=== PATIENT | male | born 1940 | race Caucasian/White ===

== ENCOUNTER 2018-06-09 12:27 | Inpatient (IN) | payer OTHER ==
[2018-06-09] MEDS ORDERED: SODIUM CHLORIDE 1,000 ML IV SCH ×3 (12:30→20:15)
[2018-06-09] MEDS ORDERED: VANCOMYCIN 1 GM PREMIX - 1 GM/200 ML BAG IVPB ONE (12:59)
[2018-06-09] MEDS ORDERED: PIPERACILLIN/TAZOB 4.5 GM 4.5 GM in DEXTROSE 5%-WATER 100 ML IVPB ONE ×2 (12:59→19:00)
[2018-06-09] MEDS ORDERED: PIPERACILLIN/TAZOB 4.5 GM 4.5 GM/100 ML BAG IVPB ONE ×2 (13:02→19:02)
[2018-06-09] MEDS ORDERED: ACETAMINOPHEN 1000 MG/100 ML VIAL (NON FORMULARY) IVPB ONE (13:02)
--- NOTE | 2018-06-09 13:57 | PDOC ---
History of Present Illness - General Chief Complaint: CVA/TIA Stated Complaint: STROKE Time Seen by Provider: 06/09/18 12:27 - History of Present Illness Initial Comments: 06/09/18 13:55 77m with pmh of back pain found on the floor by son after having spent weekend estrellita in is house. Patient is awake but doesn't seem alert, unable to talk or respond to command. PAtient was last talked to by son on Saturday where he was saying he wasn't feeling well and was feeling a cold coming. Past History - Past Medical History Allergies/Adverse Reactions: Allergies Allergy/AdvReac Type Severity Reaction Status Date / Time No Known Allergies Allergy Verified 06/09/18 13:23 Home Medications: Ambulatory Orders NK [No Known Home Medication] 06/09/18 COPD: No DVT: No Other medical history: Seasonal Allergies & chronic back pain - Immunization History Immunization Up to Date: Yes - Suicide/Smoking/Psychosocial Hx Smoking History: Unknown if ever smoked Have you smoked in the past 12 months: No Information on smoking cessation initiated: No Hx Alcohol Use: No Drug/Substance Use Hx: No Substance Use Type: None *Physical Exam - Vital Signs Last Vital Signs Temp Pulse Resp BP Pulse Ox 101.2 F H 121 H 18 166/15 94 L 06/09/18 13:23 06/09/18 13:23 06/09/18 13:23 06/09/18 13:23 06/09/18 13:23 Critical Care Time/MDM Note - Medical Decision Making Note: 06/09/18 17:00 Stroke and/or infection. Will draw CVA workup and septic workup. 06/09/18 17:[address] Oconnor with Neurology who will see the patient. Possible opacity of the left lower lung lobe may be source of white count and fever. 06/09/18 17:47 Bedside ultrasound Fast negative, no sign of tamponade either. 06/09/18 18:24 Patient admitted to ICU Discharge Disposition - Diagnosis Altered mental state, Fever - Discharge Dispostion Decision to Admit order: Yes - Referrals - Patient Instructions - Post Discharge Activity
[2018-06-09 13:59] LABS: BASO % 0.4 % (0-2.0); HEMATOCRIT 48.6 % (35.4-49); HEMOGLOBIN 16.3 GM/dL (11.7-16.9); LYMPH % 8.9 % (8-40); MCHC 33.6 g/dl (32.0-35.9); MEAN CELL VOLUME 95.2 fl (80-96); MEAN PLT VOLUME 8.8 fl (7.5-11.1); MONO % 10.9 % (3.8-10.2); NEUT % 79.8 % (42.8-82.8); PLATELET COUNT 240 K/MM3 (134-434); RBC 5.11 M/mm3 (4.00-5.60); RDW 13.4 % (11.9-15.9); WHITE BLOOD COUNT 18.9 K/mm3 (4.0-10.0)
[2018-06-09 14:13] LABS: INR 1.05 (0.82-1.09); PROTHROMBIN TIME (PATIENT) 11.9 SEC (9.7-13.0)
[2018-06-09] MEDS ORDERED: VANCOMYCIN 1 GRAM (PRE-DOCKED) 1,000 MG/250 ML BAG IVPB ONE (14:18)
[2018-06-09 14:29] LABS: URINE APPEARANCE CLEAR; URINE BILIRUBIN NEGATIVE (<2.0 mg/dL); URINE COLOR YELLOW; URINE GLUCOSE (UA) NEGATIVE (NEGATIVE); URINE KETONE NEGATIVE (NEGATIVE); URINE LEUK ESTERASE NEGATIVE (NEGATIVE); URINE NITRITE NEGATIVE (NEGATIVE)
[2018-06-09 14:33] LABS: URINE PROTEIN 3+ (NEGATIVE)
[2018-06-09 14:42] LABS: EPI CELLS RARE /HPF (FEW); URINE HYALINE CAST 1 /lpf; URINE MUCUS FEW
[2018-06-09 14:55] LABS: ALBUMIN 4.3 g/dl (3.4-5.0); ANION GAP 11 (8-16); BLOOD UREA NITROGEN 27 mg/dL (7-18); CALCIUM 9.5 mg/dL (8.5-10.1); CHLORIDE 103 mmol/L (98-107); CO2 24 mmol/L (21-32); GLUCOSE,RANDOM 114 mg/dL (74-106); SODIUM 138 mmol/L (136-145)
[2018-06-09 15:09] LABS: ALK PHOS 51 U/L (45-117); BILIRUBIN,TOTAL 0.9 mg/dL (0.2-1.0); CREATININE 1.1 mg/dL (0.7-1.3); SGPT/ALT 46 U/L (12-78); TOT PROT 8.3 g/dl (6.4-8.2)
[2018-06-09 15:33] LABS: POTASSIUM 4.9 mmol/L (3.5-5.1); SGOT/AST 68 U/L (15-37)
[2018-06-09] MEDS ORDERED: morphine CARPU-JECT 4 MG/1 ML DISP.SYRIN IVPUSH ONE (16:11)
--- NOTE | 2018-06-09 16:40 | PDOC ---
Attending Attestation - Resident Resident Name: Nathan Lyon - ED Attending Attestation I have performed the following: I have examined & evaluated the patient, The case was reviewed & discussed with the resident, I agree w/resident's findings & plan, Exceptions are as noted - HPI HPI: 06/09/18 16:35 77-year-old male with history of hypertension and chronic back pain presents with altered mental status. The patient lives with his son. The son had one on vacation for the weekend. Last saw him approximately 3 days ago. The patient at that time had a small cough but no other symptoms and was alert aware oriented and conversant. Today, the patient's son went to check on the patient upon returning home. Noted that the patient was confused, naked and found down on the ground. Patient is altered and appears to be moving all extremities spontaneously. She was noted have a fever here in the ER. Patient seen immediately by us and sent to the CAT scanner to evaluate for intracranial pathology. - Physicial Exam PE: 06/09/18 16:35 GENERAL: ill-appearing, responsive to painful stimuli, protecting airway. HEAD: No signs of trauma EYES: pinpoint pupils, sclera anicteric, conjunctiva clear ENT: Auricles normal inspection, hearing grossly normal, nares patent NECK: Normal ROM, supple LUNGS: Breath sounds equal, clear to auscultation bilaterally. HEART: Regular rate and rhythm, normal S1 and S2, no murmurs, rubs or gallops ABDOMEN: Soft,. No guarding, no rebound. No masses EXTREMITIES: Normal range of motion, no edema. No clubbing or cyanosis. No cords, erythema, or tenderness NEUROLOGICAL: Cranial nerves II through XII grossly intact. - Critical Care Time Total Critical Care Time: 30 Critical Care Statement: The care of this patient involved high complexity decision making to prevent further life threatening deterioration of the patient 's condition and/or to evaluate & treat vital organ system(s) failure or risk of failure. - Medical Decision Making 06/09/18 16:38 Vital Signs Temp Pulse Resp BP Pulse Ox 101.2 F H 126 H 18 203/113 97 06/09/18 13:23 06/09/18 15:55 06/09/18 15:55 06/09/18 15:55 06/09/18 15:55 Patient is quite altered and with a fever here. The AMS is likely secondary to infectious. Pt has been coughing prior. Chest xray reviewed, pending official read. Sepsis protocol initiated and pt treated with empiric IV antibiotics. Head CT reviewed with no acute findings. Given the ill-appearance, the patient would benefit from an ICU admission. Will admit the patient to the hospital for further management. <Shahbaz Matthew - Last Filed: 06/09/18 16:34> - Medical Decision Making 06/09/18 22:52 Dwight Cole (Son) <Chelsy Raza - Last Filed: 06/09/18 22:53>
[2018-06-09] MEDS ORDERED: MORPHINE SULFATE 10 MG/1 ML *VIAL ONE (17:05)
[2018-06-09] MEDS ORDERED: LABETALOL HCL 5 MG/1 ML (100MG/20 ML VIAL) IVPUSH PRN (17:47)
[2018-06-09] MEDS ORDERED: ACETAMINOPHEN 1000 MG/100 ML VIAL (NON FORMULARY) IVPB PRN (17:50)
--- NOTE | 2018-06-09 18:22 | CONSULT ---
Consultation: REQUESTING PROVIDER: CONSULT REQUEST: We have been asked to medically evaluate this patient for (ICU admission for CVA and Rhabdomyolysis). HISTORY OF PRESENT ILLNESS: 77 year old male who lives at home with his son is being admitted to the ICU for Probable CVA and Rhabdomyolysis. Pt history is limited due to the pt clinical status and taken fully from chart review and conversation with two sons. The son was away on vacation and last saw the pt well on Saturday; last spoke to the patient well on saturday. Son states he found his father on the floor this morning altered and unable to speak or move the right side of his body. REVIEW OF SYSTEMS: CONSTITUTIONAL: fever, generalized weakness Absent: , chills, diaphoresis, malaise, loss of appetite, weight change HEENT: Absent: rhinorrhea, nasal congestion, throat pain, throat swelling, difficulty swallowing, mouth swelling, ear pain, eye pain, visual changes CARDIOVASCULAR: Absent: chest pain, syncope, palpitations, irregular heart rate, lightheadedness , peripheral edema RESPIRATORY: Absent: cough, shortness of breath, dyspnea with exertion, orthopnea, wheezing, stridor, hemoptysis GASTROINTESTINAL: Absent: abdominal pain, abdominal distension, nausea, vomiting, diarrhea, constipation, melena, hematochezia GENITOURINARY: Absent: dysuria, frequency, urgency, hesitancy, hematuria, flank pain, genital pain MUSCULOSKELETAL: Absent: myalgia, arthralgia, joint swelling, back pain, neck pain SKIN: Absent: rash, itching, pallor HEMATOLOGIC/IMMUNOLOGIC: Absent: easy bleeding, easy bruising, lymphadenopathy, frequent infections ENDOCRINE: Absent: unexplained weight gain, unexplained weight loss, heat intolerance, cold intolerance NEUROLOGIC: focal weakness, mental status changes Absent: headache, or paresthesias, dizziness, unsteady gait, seizure, bladder or bowel incontinence PSYCHIATRIC: Absent: anxiety, depression, suicidal or homicidal ideation, hallucinations. PHYSICAL EXAMINATION Vital Signs - 24 hr 06/09/18 06/09/18 06/09/18 12:35 13:23 14:22 Temperature 101.2 F H Pulse Rate 115 H 121 H Pulse Rate [ 120 H Left] Respiratory 18 22 Rate Blood Pressure 166/15 Blood Pressure 247/118 [Arm] O2 Sat by Pulse 98 94 L 98 Oximetry (%) 06/09/18 15:55 Temperature Pulse Rate Pulse Rate [ 126 H Left] Respiratory 18 Rate Blood Pressure Blood Pressure 203/113 [Arm] O2 Sat by Pulse 97 Oximetry (%) GENERAL: Awake, alert, in no acute distress. HEAD: Normal with no signs of trauma. EYES: Pt unable to perform EOM testing. Right sided lid lag, injected conjunctiva, tearing. Pupils equal, round and reactive to light, sclera anicteric EARS, NOSE, THROAT: Ears normal, nares patent, oropharynx clear without exudates. Moist mucous membranes. NECK: decreased range of motion, supple without lymphadenopathy, JVD, or masses. LUNGS: Breath sounds equal, clear to auscultation bilaterally. No wheezes, and no crackles. No accessory muscle use. HEART: Tachycardic, regular rythm, normal S1 and S2 without murmur, rub or gallop. ABDOMEN: Soft, nontender, not distended, normoactive bowel sounds, no guarding, no rebound, no masses. No hepatomegaly or splenomegaly. MUSCULOSKELETAL: Unable to determine ROM on right due to weakness. No bony deformities or tenderness. No CVA tenderness. UPPER EXTREMITIES: 2+ pulses, warm, well-perfused. No cyanosis. No clubbing. Cap refill <2 seconds. No peripheral edema. LOWER EXTREMITIES: 2+ pulses, warm, well-perfused. No calf tenderness. No peripheral edema. NEUROLOGICAL: Pt unable to perform CN exam, unable to speak or follow commands. 0/5 weakness of complete RLE and RUE PSYCHIATRIC: Good eye contact. SKIN: Warm, dry, normal turgor, no rashes or lesions noted. Laboratory Results - last 24 hr 06/09/18 06/09/18 06/09/18 12:29 13:35 13:38 WBC RBC Hgb Hct MCV MCH MCHC RDW Plt Count MPV Absolute Neuts (auto) Neutrophils % Lymphocytes % Monocytes % Eosinophils % Basophils % Nucleated RBC % PT with INR INR Sodium Potassium Chloride Carbon Dioxide Anion Gap BUN Creatinine Creat Clearance w eGFR Random Glucose Lactic Acid 2.4 H* Calcium Total Bilirubin AST ALT Alkaline Phosphatase Creatine Kinase Troponin I Total Protein Albumin Total LDL Cholesterol Urine Color Yellow Urine Appearance Clear Urine pH 5.0 Ur Specific [place] 1.024 Urine Protein 3+ H Urine Glucose (UA) Negative Urine Ketones Negative Urine Blood 3+ H Urine Nitrite Negative Urine Bilirubin Negative Urine Urobilinogen 2.0 Ur Leukocyte Esterase Negative Urine WBC (Auto) 7 Urine RBC (Auto) 10 Ur Epithelial Cells Rare Hyaline Casts 1 Urine Mucus Few Blood Type Cancelled Antibody Screen Cancelled 06/09/18 06/09/18 06/09/18 13:40 13:40 13:40 WBC 18.9 H RBC 5.11 Hgb 16.3 Hct 48.6 MCV 95.2 MCH 32.0 MCHC 33.6 RDW 13.4 Plt Count 240 MPV 8.8 Absolute Neuts (auto) 15.1 Neutrophils % 79.8 Lymphocytes % 8.9 Monocytes % 10.9 H Eosinophils % 0.0 Basophils % 0.4 Nucleated RBC % 0 PT with INR 11.90 INR 1.05 Sodium 138 Potassium 4.9 Chloride 103 Carbon Dioxide 24 Anion Gap 11 BUN 27 H Creatinine 1.1 Creat Clearance w eGFR > 60 Random Glucose 114 H Lactic Acid Calcium 9.5 Total Bilirubin 0.9 AST 68 H ALT 46 Alkaline Phosphatase 51 Creatine Kinase 1288 H Troponin I 0.03 Total Protein 8.3 H Albumin 4.3 Total LDL Cholesterol 196 H Urine Color Urine Appearance Urine pH Ur Specific [place] Urine Protein Urine Glucose (UA) Urine Ketones Urine Blood Urine Nitrite Urine Bilirubin Urine Urobilinogen Ur Leukocyte Esterase Urine WBC (Auto) Urine RBC (Auto) Ur Epithelial Cells Hyaline Casts Urine Mucus Blood Type Antibody Screen Active Medications Generic Name Dose Route Start Last Admin Trade Name Jenaroq PRN Reason Stop Dose Admin Acetaminophen 1,000 mg 06/09/18 17:50 Ofirmev Injection - IVPB Q4H PRN FEVER Aspirin 300 mg 06/09/18 17:45 Asa - RC DAILY FLIP Piperacillin Sod/Tazobactam 100 mls @ 200 mls/hr 06/09/18 19:00 Sod 4.5 gm/ Dextrose IVPB 06/09/18 19:29 ONCE ONE Protocol Vancomycin HCl 1,000 mg/ 250 mls @ 166.667 mls/hr 06/10/18 13:00 Dextrose IVPB 06/10/18 14:29 ONCE ONE Protocol Sodium Chloride 1,000 mls @ 100 mls/hr 06/09/18 18:00 Normal Saline - IV ASDIR FLIP Insulin Aspart 1 vial 06/09/18 22:00 Novolog Vial Sliding Scale - SQ ACHS FLIP Protocol Labetalol HCl 10 mg 06/09/18 17:47 Normodyne Injection - IVPUSH Q4H PRN HYPERTENSION ASSESSMENT/PLAN: Neuro -Neurology consult appreciated -Acute vs. Subacute CVA 300mg ASA rectally Permissive HTN as per below, awaiting neurology recommendation Negative CT noted, MRI w/o contrast ordered Cardio -HTN with systolic >200 and CVA -PRN labatalol 10mg IV to keep Systolic <200, cautiously lower bp as per stroke literature and Neurology recommendation Respiratory -No acute Respiratory issues -Aspiration precautions Elevate head of bed NPO until speech and swallow eval Frequent suctioning GI -No acute GI issues at this time, NPO Renal -CK of 1288, most likely due to Rhabdo after being found on the ground 3+ blood in urine with only 10 RBCs Fluid resuscitation with NS @100 cc/hr Will follow BMP Endocrine -No known history of DM, however BGM monitoring Q4 and insulin SS ordered to keep glucose with a goal of 160-180 ID -ID consult appreciated Received vanco 1000mg and Zosyn 4.5 gm in ED, will redose vanco and zosyn for now Fever most likely not infectious in nature VTE Prophylaxis -SCD's b/l -Will await heparin until Neuro recommendation FEN Fluids: NS @ 100 cc/hr Electrolytes: No electrolyte abnormalities at this time. Follow BMP Nutrition: NPO until speech and swallow eval Dispo: We will continue to follow the patient. Thank you for this consultative opportunity. Problem List - Problems (1) CVA (cerebral vascular accident) Code(s): I63.9 - CEREBRAL INFARCTION, UNSPECIFIED (2) Rhabdomyolysis Code(s): M62.82 - RHABDOMYOLYSIS (3) HTN (hypertension), malignant Code(s): I10 - ESSENTIAL (PRIMARY) HYPERTENSION (4) Altered mental state Code(s): R41.82 - ALTERED MENTAL STATUS, UNSPECIFIED (5) Fever Code(s): R50.9 - FEVER, UNSPECIFIED Visit type - Emergency Visit Emergency Visit: Yes ED Registration Date: 06/09/18 Care time: The patient presented to the Emergency Department on the above date and was hospitalized for further evaluation of their emergent condition. - New Patient This patient is new to me today: Yes Date on this admission: 06/09/18 - Critical Care Critical Care patient: Yes Total Critical Care Time (in minutes): 45 Critical Care Statement: The care of this patient involved high complexity decision making to prevent further life threatening deterioration of the patient 's condition and/or to evaluate & treat vital organ system(s) failure or risk of failure.
[2018-06-09] MEDS ORDERED: ASPIRIN 300 MG SUPP.RECT RC ONE (18:29)
[2018-06-09] MEDS: ASPIRIN 300 MG SUPP.RECT RC SCH (18:40)
--- NOTE | 2018-06-09 19:57 | HP ---
Admitting History and Physical - Primary Care Physician PCP: Kristy Mcallister - Admission History of Present Illness: 77-year-old male with history of hypertension and chronic back pain presents with altered mental status. The patient lives with his son. The son had one on vacation for the weekend. Last saw him approximately 3 days ago. The patient at that time had a small cough but no other symptoms and was alert aware oriented and conversant. Today, the patient's son went to check on the patient upon returning home. Noted that the patient was confused, naked and found down on the ground. Patient is altered and appears to be moving all extremities spontaneously. She was noted have a fever here in the ER. Patient seen immediately by us and sent to the CAT scanner to evaluate for intracranial pathology. - Past Medical History Cardiovascular: Yes: HTN - Smoking History Smoking history: Unknown if ever smoked Have you smoked in the past 12 months: No - Alcohol/Substance Use Hx Alcohol Use: No Home Medications - Allergies Allergies/Adverse Reactions: Allergies Allergy/AdvReac Type Severity Reaction Status Date / Time No Known Allergies Allergy Verified 06/09/18 13:23 - Home Medications Home Medications: Ambulatory Orders NK [No Known Home Medication] 06/09/18 Physical Examination Vital Signs: Vital Signs Temperature 100.2 F H 06/09/18 18:38 Pulse Rate 125 H 06/09/18 18:26 Respiratory Rate 22 06/09/18 18:26 Blood Pressure 183/96 06/09/18 18:26 O2 Sat by Pulse Oximetry (%) 97 06/09/18 18:26 Findings/Remarks: awake but not talking Constitutional: Yes: Calm HENT: Yes: Atraumatic Neck: Yes: Supple Cardiovascular: Yes: Regular Rate and Rhythm Respiratory: Yes: CTA Bilaterally Gastrointestinal: Yes: Normal Bowel Sounds Extremities: Yes: WNL Edema: No Peripheral Pulses WNL: Yes Neurological: Yes: Other (not moving R upper and lower extremity) Labs: CBC, BMP 06/09/18 13:40 06/09/18 13:40 Problem List - Problems (1) Altered mental state Assessment/Plan: pt awake not talking mri done neuro consult Code(s): R41.82 - ALTERED MENTAL STATUS, UNSPECIFIED Qualifiers: Altered mental status type: transient alteration of awareness Qualified Code(s): R40.4 - Transient alteration of awareness (2) HTN (hypertension), malignant Assessment/Plan: on meds monitor Code(s): I10 - ESSENTIAL (PRIMARY) HYPERTENSION (3) Fever Assessment/Plan: on abx cxs sent Code(s): R50.9 - FEVER, UNSPECIFIED Qualifiers: Fever type: unspecified Qualified Code(s): R50.9 - Fever, unspecified (4) Rhabdomyolysis Code(s): M62.82 - RHABDOMYOLYSIS Qualifiers: Rhabdomyolysis type: non-traumatic Qualified Code(s): M62.82 - Rhabdomyolysis Assessment/Plan Laboratory Tests 06/09/18 06/09/18 06/09/18 12:29 13:35 13:38 WBC RBC Hgb Hct MCV MCH MCHC RDW Plt Count MPV Absolute Neuts (auto) Neutrophils % Lymphocytes % Monocytes % Eosinophils % Basophils % Nucleated RBC % PT with INR INR Sodium Potassium Chloride Carbon Dioxide Anion Gap BUN Creatinine Creat Clearance w eGFR Random Glucose Lactic Acid 2.4 H* Calcium Total Bilirubin AST ALT Alkaline Phosphatase Creatine Kinase Creatine Kinase Index CK-MB (CK-2) Troponin I Total Protein Albumin Total LDL Cholesterol Urine Color Yellow Urine Appearance Clear Urine pH 5.0 Ur Specific [place] 1.024 Urine Protein 3+ H Urine Glucose (UA) Negative Urine Ketones Negative Urine Blood 3+ H Urine Nitrite Negative Urine Bilirubin Negative Urine Urobilinogen 2.0 Ur Leukocyte Esterase Negative Urine WBC (Auto) 7 Urine RBC (Auto) 10 Ur Epithelial Cells Rare Hyaline Casts 1 Urine Mucus Few Blood Type Cancelled Antibody Screen Cancelled 06/09/18 06/09/18 06/09/18 13:40 13:40 13:40 WBC 18.9 H RBC 5.11 Hgb 16.3 Hct 48.6 MCV 95.2 MCH 32.0 MCHC 33.6 RDW 13.4 Plt Count 240 MPV 8.8 Absolute Neuts (auto) 15.1 Neutrophils % 79.8 Lymphocytes % 8.9 Monocytes % 10.9 H Eosinophils % 0.0 Basophils % 0.4 Nucleated RBC % 0 PT with INR 11.90 INR 1.05 Sodium 138 Potassium 4.9 Chloride 103 Carbon Dioxide 24 Anion Gap 11 BUN 27 H Creatinine 1.1 Creat Clearance w eGFR > 60 Random Glucose 114 H Lactic Acid Calcium 9.5 Total Bilirubin 0.9 AST 68 H ALT 46 Alkaline Phosphatase 51 Creatine Kinase 1288 H Creatine Kinase Index 0.1 CK-MB (CK-2) 2.20 Troponin I 0.03 Total Protein 8.3 H Albumin 4.3 Total LDL Cholesterol 196 H Urine Color Urine Appearance Urine pH Ur Specific [place] Urine Protein Urine Glucose (UA) Urine Ketones Urine Blood Urine Nitrite Urine Bilirubin Urine Urobilinogen Ur Leukocyte Esterase Urine WBC (Auto) Urine RBC (Auto) Ur Epithelial Cells Hyaline Casts Urine Mucus Blood Type Antibody Screen Active Medications Generic Name Dose Route Start Last Admin Trade Name Ander PRN Reason Stop Dose Admin Acetaminophen 1,000 mg 06/09/18 17:50 Ofirmev Injection - IVPB Q4H PRN FEVER Aspirin 300 mg 06/09/18 17:45 06/09/18 18:40 Asa - RC 300 mg DAILY FLIP Administration Vancomycin HCl 1,000 mg/ 250 mls @ 166.667 mls/hr 06/10/18 13:00 Dextrose IVPB 06/10/18 14:29 ONCE ONE Protocol Sodium Chloride 1,000 mls @ 100 mls/hr 06/09/18 18:00 Normal Saline - IV ASDIR FLIP Insulin Aspart 1 vial 06/09/18 22:00 Novolog Vial Sliding Scale - SQ ACHS FLIP Protocol Labetalol HCl 10 mg 06/09/18 17:47 Normodyne Injection - IVPUSH Q4H PRN HYPERTENSION Active Medications Generic Name Dose Route Start Last Admin Trade Name Ander PRN Reason Stop Dose Admin Acetaminophen 1,000 mg 06/09/18 17:50 Ofirmev Injection - IVPB Q4H PRN FEVER Aspirin 300 mg 06/09/18 17:45 06/10/18 09:20 Asa - RC 300 mg DAILY FLIP Administration Heparin Sodium (Porcine) 5,000 unit 06/09/18 22:00 06/10/18 09:16 Heparin - SQ 5,000 unit BID FLIP Administration Piperacillin Sod/Tazobactam 50 mls @ 100 mls/hr 06/10/18 02:00 06/10/18 09:18 Sod 3.375 gm/ Dextrose IVPB 100 mls/hr Q8H-IV FLIP Administration Protocol Sodium Chloride 1,000 mls @ 100 mls/hr 06/10/18 12:03 06/10/18 13:50 Normal Saline - IV 100 mls/hr ASDIR FLIP Administration Sodium Chloride 250 mls @ 250 mls/hr 06/10/18 12:04 06/10/18 13:51 Normal Saline - IV 06/10/18 13:03 250 mls/hr ASDIR STA Administration Insulin Aspart 1 vial 06/09/18 22:00 06/10/18 12:11 Novolog Vial Sliding Scale - SQ Not Given ACHS FLIP Protocol Labetalol HCl 10 mg 06/10/18 09:41 Normodyne Injection - IVPUSH Q6H PRN HYPERTENSION Levetiracetam 500 mg 06/10/18 11:00 06/10/18 10:38 Keppra Injection - IVPB 500 mg BID FLIP Administration Rosuvastatin Calcium 40 mg 06/10/18 22:00 Crestor - PO HS FLIP cc time 60 min
--- NOTE | 2018-06-09 20:50 | CON.NEURO ---
Consult Consult Specialty:: neurology Referred by:: Dr. Mcallister Reason for Consultation:: right sided weakness and aphasia - History of Present Illness Chief Complaint: right sided weakness and aphasia History of Present Illness: Patient last seen well on Saturday, 3 days prior to admission when son went away for the weekend, came back to find him on the floor naked and anarthric. Brought in by ems. He is more awake but still not verbal and not moving right side. He has only a history of back pain and complained on Saturday of not feeling well, as if he were getting a cold. - History Source History Provided By: Family Member, Medical Record - Past Medical History Musculoskeletal: Yes: Chronic low back pain - Alcohol/Substance Use Hx Alcohol Use: No - Smoking History Smoking history: Unknown if ever smoked Have you smoked in the past 12 months: No Home Medications - Allergies Allergies/Adverse Reactions: Allergies Allergy/AdvReac Type Severity Reaction Status Date / Time No Known Allergies Allergy Verified 06/09/18 13:23 - Home Medications Home Medications: Ambulatory Orders NK [No Known Home Medication] 06/09/18 Physical Exam-Neuro Vital Signs: Vital Signs Temperature 100.2 F H 06/09/18 18:38 Pulse Rate 125 H 06/09/18 18:26 Respiratory Rate 22 06/09/18 18:26 Blood Pressure 183/96 06/09/18 18:26 O2 Sat by Pulse Oximetry (%) 97 06/09/18 18:26 Labs: CBC, BMP 06/09/18 13:40 06/09/18 13:40 INR, PTT INR 1.05 (0.82-1.09) 06/09/18 13:40 NIH Stroke Scale - Last Known Well Date/Time & Onset Date Last Known Well: 06/06/18 - Initial Evaluation Level of consciousness: Alert Ask patient the month and their age: Both incorrect Ask patient to open & close eyes; make fist and let go: Both incorrect Best gaze (horizontal eye movement): Partial gaze palsy Visual field testing: Partial hemianopia Facial paresis (Show teeth/raise eyebrows/close eyes tight): Normal symmetrical movement Motor Function: Left Arm: Drift Motor Function: Right Arm: No movement Motor Function: Left Leg: No movement Motor Function: Right Leg: No movement Limb Ataxia: No ataxia Sensory(Use pinprick test arms,legs,trunk,face/side to side): Mild to moderate decrease in sensation Best language (Describe picture, name items, read sentences): Mute Dysarthria (read several words): Near unintelligible or unable to speak Extinction and Inattention: No abnormality - Total Score NIH Stroke Scale Score: 25 Imaging - Results Cat Scan: Report Reviewed, Image Reviewed (atrophy and white matter changes. No clear infarction) Problem List - Problems (1) Altered mental state Code(s): R41.82 - ALTERED MENTAL STATUS, UNSPECIFIED (2) CVA (cerebral vascular accident) Code(s): I63.9 - CEREBRAL INFARCTION, UNSPECIFIED (3) Fever Code(s): R50.9 - FEVER, UNSPECIFIED (4) HTN (hypertension), malignant Code(s): I10 - ESSENTIAL (PRIMARY) HYPERTENSION (5) Rhabdomyolysis Code(s): M62.82 - RHABDOMYOLYSIS Assessment/Plan Appears to have had left hemispheric event, likely relatively recent given lack of evidence on CT but still age indeterminant given unknown time of onset and no role of TPA in thsi case. Will need MRI, carotid studies, echocardiogram and fever workup. Aspirin and statin.
[2018-06-10] MEDS ORDERED: DEXTROSE 5%-WATER - 50 ML IVPB ONE ×2 (01:04→09:08)
[2018-06-10] MEDS ORDERED: PIPERACILLIN/TAZOBACTAM 3.375 GM VIAL IVPB ONE ×2 (01:04→09:08)
[2018-06-10] MEDS: PIPERACILLIN/TAZOB 3.375 GM 3.375 GM in DEXTROSE 5%-WATER - 50 ML IVPB SCH ×2 (01:16→09:18)
[2018-06-10] MEDS: HEPARIN NA (PORCINE) 5,000 UNITS/ML 1ML VIAL SQ SCH ×3 (01:16→22:38)
[2018-06-10] MEDS: INSULIN SLIDING SCALE (NOVOLOG) 1 VIAL SQ SCH ×5 (01:17→22:48)
[2018-06-10 06:14] LABS: BASO % 0.3 % (0-2.0); HEMATOCRIT 43.2 % (35.4-49); HEMOGLOBIN 14.7 GM/dL (11.7-16.9); LYMPH % 11.7 % (8-40); MCH 32.4 pg (25.7-33.7); MCHC 34.1 g/dl (32.0-35.9); MEAN CELL VOLUME 95.1 fl (80-96); MEAN PLT VOLUME 8.3 fl (7.5-11.1); MONO % 12.1 % (3.8-10.2); NEUT % 75.9 % (42.8-82.8); PLATELET COUNT 188 K/MM3 (134-434); RBC 4.55 M/mm3 (4.00-5.60); RDW 13.2 % (11.9-15.9)
[2018-06-10 06:36] LABS: ALBUMIN 3.5 g/dl (3.4-5.0); ANION GAP 9 (8-16); BILIRUBIN,TOTAL 1.1 mg/dL (0.2-1.0); BLOOD UREA NITROGEN 27 mg/dL (7-18); CALCIUM 8.4 mg/dL (8.5-10.1); CHLORIDE 109 mmol/L (98-107); CO2 26 mmol/L (21-32); GLUCOSE,RANDOM 100 mg/dL (74-106); MAGNESIUM 2.2 mg/dL (1.8-2.4); PHOSPHOROUS 3.3 mg/dL (2.5-4.9); POTASSIUM 3.7 mmol/L (3.5-5.1); SGOT/AST 59 U/L (15-37); SGPT/ALT 69 U/L (12-78); SODIUM 144 mmol/L (136-145); TOT PROT 6.6 g/dl (6.4-8.2)
[2018-06-10 06:37] LABS: ALK PHOS 43 U/L (45-117)
[2018-06-10] MEDS ORDERED: LABETALOL HCL 5 MG/1 ML (100MG/20 ML VIAL) IVPUSH ONE (08:51)
[2018-06-10] MEDS ORDERED: LORazepam 2 MG/ML SDV VIAL ONE (09:07)
[2018-06-10] MEDS: ASPIRIN 300 MG SUPP.RECT RC SCH (09:20)
--- NOTE | 2018-06-10 09:37 | PN ---
Physical Exam: SUBJECTIVE: Patient seen and examined in the ICU. Pt was able to say "yes" which is improved from yesterday. Able to follow commands better than yesterday as well with some movement of his right arm. Pt began to seize during neuro exam. Ordered stat ativan and keppra loading dose , seizure resolved on its own. OBJECTIVE: Vital Signs Period Temp Pulse Resp BP Sys/Jaimes Pulse Ox Last 24 Hr 99 F-101.2 F 77-126 17-22 162-247/15-118 94-100 GENERAL: Awake, alert, in no acute distress. HEAD: Normal with no signs of trauma. EYES: Pt unable to perform EOM testing. Right sided lid lag, injected conjunctiva, tearing. Pupils equal, round and reactive to light, sclera anicteric EARS, NOSE, THROAT: Ears normal, nares patent, oropharynx clear without exudates. Moist mucous membranes. NECK: decreased range of motion, supple without lymphadenopathy, JVD, or masses. LUNGS: Breath sounds equal, clear to auscultation bilaterally. No wheezes, and no crackles. No accessory muscle use. HEART: Tachycardic, regular rythm, normal S1 and S2 without murmur, rub or gallop. ABDOMEN: Soft, nontender, not distended, normoactive bowel sounds, no guarding, no rebound, no masses. No hepatomegaly or splenomegaly. MUSCULOSKELETAL: Unable to determine ROM on right due to weakness. No bony deformities or tenderness. No CVA tenderness. UPPER EXTREMITIES: 2+ pulses, warm, well-perfused. No cyanosis. No clubbing. Cap refill <2 seconds. No peripheral edema. LOWER EXTREMITIES: 2+ pulses, warm, well-perfused. No calf tenderness. No peripheral edema. NEUROLOGICAL: Seizure during neuro exam which resolved. Pt unable to perform CN exam, Was able to speak one word before seizure. 1/5 weakness of RUE, 0/5 weakness RLE PSYCHIATRIC: Good eye contact. SKIN: Warm, dry, normal turgor, no rashes or lesions noted. Laboratory Results - last 24 hr 06/09/18 06/09/18 06/09/18 12:29 13:35 13:38 WBC RBC Hgb Hct MCV MCH MCHC RDW Plt Count MPV Absolute Neuts (auto) Neutrophils % Lymphocytes % Monocytes % Eosinophils % Basophils % Nucleated RBC % PT with INR INR Sodium Potassium Chloride Carbon Dioxide Anion Gap BUN Creatinine Creat Clearance w eGFR POC Glucometer Random Glucose Lactic Acid 2.4 H* Calcium Phosphorus Magnesium Total Bilirubin AST ALT Alkaline Phosphatase Creatine Kinase Creatine Kinase Index CK-MB (CK-2) Troponin I Total Protein Albumin Total LDL Cholesterol Urine Color Yellow Urine Appearance Clear Urine pH 5.0 Ur Specific [place] 1.024 Urine Protein 3+ H Urine Glucose (UA) Negative Urine Ketones Negative Urine Blood 3+ H Urine Nitrite Negative Urine Bilirubin Negative Urine Urobilinogen 2.0 Ur Leukocyte Esterase Negative Urine WBC (Auto) 7 Urine RBC (Auto) 10 Ur Epithelial Cells Rare Hyaline Casts 1 Urine Mucus Few Blood Type Cancelled Antibody Screen Cancelled 06/09/18 06/09/18 06/09/18 13:40 13:40 13:40 WBC 18.9 H RBC 5.11 Hgb 16.3 Hct 48.6 MCV 95.2 MCH 32.0 MCHC 33.6 RDW 13.4 Plt Count 240 MPV 8.8 Absolute Neuts (auto) 15.1 Neutrophils % 79.8 Lymphocytes % 8.9 Monocytes % 10.9 H Eosinophils % 0.0 Basophils % 0.4 Nucleated RBC % 0 PT with INR 11.90 INR 1.05 Sodium 138 Potassium 4.9 Chloride 103 Carbon Dioxide 24 Anion Gap 11 BUN 27 H Creatinine 1.1 Creat Clearance w eGFR > 60 POC Glucometer Random Glucose 114 H Lactic Acid Calcium 9.5 Phosphorus Magnesium Total Bilirubin 0.9 AST 68 H ALT 46 Alkaline Phosphatase 51 Creatine Kinase 1288 H Creatine Kinase Index 0.1 CK-MB (CK-2) 2.20 Troponin I 0.03 Total Protein 8.3 H Albumin 4.3 Total LDL Cholesterol 196 H Urine Color Urine Appearance Urine pH Ur Specific [place] Urine Protein Urine Glucose (UA) Urine Ketones Urine Blood Urine Nitrite Urine Bilirubin Urine Urobilinogen Ur Leukocyte Esterase Urine WBC (Auto) Urine RBC (Auto) Ur Epithelial Cells Hyaline Casts Urine Mucus Blood Type Antibody Screen 06/09/18 06/09/18 06/10/18 22:10 22:10 01:00 WBC RBC Hgb Hct MCV MCH MCHC RDW Plt Count MPV Absolute Neuts (auto) Neutrophils % Lymphocytes % Monocytes % Eosinophils % Basophils % Nucleated RBC % PT with INR INR Sodium Potassium Chloride Carbon Dioxide Anion Gap BUN Creatinine Creat Clearance w eGFR POC Glucometer Random Glucose Lactic Acid 1.7 Calcium Phosphorus Magnesium Total Bilirubin AST ALT Alkaline Phosphatase Creatine Kinase 1322 H Creatine Kinase Index 0.1 CK-MB (CK-2) 2.07 Troponin I 0.07 H D Total Protein Albumin Total LDL Cholesterol Urine Color Urine Appearance Urine pH Ur Specific [place] Urine Protein Urine Glucose (UA) Urine Ketones Urine Blood Urine Nitrite Urine Bilirubin Urine Urobilinogen Ur Leukocyte Esterase Urine WBC (Auto) Urine RBC (Auto) Ur Epithelial Cells Hyaline Casts Urine Mucus Blood Type B POSITIVE Antibody Screen Negative 06/10/18 06/10/18 06/10/18 01:16 05:30 05:30 WBC RBC Hgb Hct MCV MCH MCHC RDW Plt Count MPV Absolute Neuts (auto) Neutrophils % Lymphocytes % Monocytes % Eosinophils % Basophils % Nucleated RBC % PT with INR INR Sodium 144 Potassium 3.7 D Chloride 109 H Carbon Dioxide 26 Anion Gap 9 BUN 27 H Creatinine 1.0 Creat Clearance w eGFR > 60 POC Glucometer [phone] Random Glucose 100 Lactic Acid Calcium 8.4 L Phosphorus 3.3 Magnesium 2.2 Total Bilirubin 1.1 H AST 59 H ALT 69 D Alkaline Phosphatase 43 L Creatine Kinase Creatine Kinase Index CK-MB (CK-2) Troponin I Total Protein 6.6 Albumin 3.5 Total LDL Cholesterol Urine Color Urine Appearance Urine pH Ur Specific [place] Urine Protein Urine Glucose (UA) Urine Ketones Urine Blood Urine Nitrite Urine Bilirubin Urine Urobilinogen Ur Leukocyte Esterase Urine WBC (Auto) Urine RBC (Auto) Ur Epithelial Cells Hyaline Casts Urine Mucus Blood Type B POSITIVE Antibody Screen 06/10/18 06/10/18 06/10/18 05:30 05:30 05:30 WBC 16.0 H RBC 4.55 Hgb 14.7 Hct 43.2 MCV 95.1 MCH 32.4 MCHC 34.1 RDW 13.2 Plt Count 188 D MPV 8.3 Absolute Neuts (auto) 12.2 Neutrophils % 75.9 Lymphocytes % 11.7 D Monocytes % 12.1 H Eosinophils % 0.0 Basophils % 0.3 Nucleated RBC % 0 PT with INR INR Sodium Potassium Chloride Carbon Dioxide Anion Gap BUN Creatinine Creat Clearance w eGFR POC Glucometer Random Glucose Lactic Acid Calcium Phosphorus Magnesium Total Bilirubin AST ALT Alkaline Phosphatase Creatine Kinase 1001 H Creatine Kinase Index CK-MB (CK-2) Troponin I 0.05 Total Protein Albumin Total LDL Cholesterol Urine Color Urine Appearance Urine pH Ur Specific [place] Urine Protein Urine Glucose (UA) Urine Ketones Urine Blood Urine Nitrite Urine Bilirubin Urine Urobilinogen Ur Leukocyte Esterase Urine WBC (Auto) Urine RBC (Auto) Ur Epithelial Cells Hyaline Casts Urine Mucus Blood Type Antibody Screen 06/10/18 06:18 WBC RBC Hgb Hct MCV MCH MCHC RDW Plt Count MPV Absolute Neuts (auto) Neutrophils % Lymphocytes % Monocytes % Eosinophils % Basophils % Nucleated RBC % PT with INR INR Sodium Potassium Chloride Carbon Dioxide Anion Gap BUN Creatinine Creat Clearance w eGFR POC Glucometer [phone] Random Glucose Lactic Acid Calcium Phosphorus Magnesium Total Bilirubin AST ALT Alkaline Phosphatase Creatine Kinase Creatine Kinase Index CK-MB (CK-2) Troponin I Total Protein Albumin Total LDL Cholesterol Urine Color Urine Appearance Urine pH Ur Specific [place] Urine Protein Urine Glucose (UA) Urine Ketones Urine Blood Urine Nitrite Urine Bilirubin Urine Urobilinogen Ur Leukocyte Esterase Urine WBC (Auto) Urine RBC (Auto) Ur Epithelial Cells Hyaline Casts Urine Mucus Blood Type Antibody Screen Active Medications Generic Name Dose Route Start Last Admin Trade Name Freq PRN Reason Stop Dose Admin Acetaminophen 1,000 mg 06/09/18 17:50 Ofirmev Injection - IVPB Q4H PRN FEVER Aspirin 300 mg 06/09/18 17:45 06/10/18 09:20 Asa - RC 300 mg DAILY FLIP Administration Heparin Sodium (Porcine) 5,000 unit 06/09/18 22:00 06/10/18 09:16 Heparin - SQ 5,000 unit BID FLIP Administration Vancomycin HCl 1,000 mg/ 250 mls @ 166.667 mls/hr 06/10/18 13:00 Dextrose IVPB 06/10/18 14:29 ONCE ONE Protocol Sodium Chloride 1,000 mls @ 50 mls/hr 06/09/18 20:15 06/09/18 23:10 Normal Saline - IV 50 mls/hr ASDIR FLIP Administration Piperacillin Sod/Tazobactam 50 mls @ 100 mls/hr 06/10/18 02:00 06/10/18 09:18 Sod 3.375 gm/ Dextrose IVPB 100 mls/hr Q8H-IV FLIP Administration Protocol Insulin Aspart 1 vial 06/09/18 22:00 06/10/18 06:26 Novolog Vial Sliding Scale - SQ Not Given ACHS FLIP Protocol Levetiracetam 500 mg 06/10/18 10:00 Keppra Injection - IVPB BID FLIP Lorazepam 4 mg 06/10/18 09:03 06/10/18 09:14 Ativan Injection - IVPUSH 06/10/18 09:04 4 mg ONCE ONE Administration Pneumococcal 13-Valent Conj Vacc 0.5 ml 06/10/18 10:00 Prevnar 13 Syringe - IM 06/10/18 10:01 .ONCE ONE ASSESSMENT/PLAN: 77 yo male admitted to the ICU s/p CVA (did NOT receive tPA) with concurrent Rhabdomyolysis Neuro -Neurology consult appreciated -Acute vs. Subacute CVA 300mg ASA rectally Daily, Crestor 40mg PO Daily Permissive HTN as per below Negative CT noted, MRI suggestive of multiple small cortical infarcts on review Head and Neck CTA as carotid doplar showed stenosis -Seizure noted this morning during exam, resolved on its own but pt received ativan Loading dose Keppra 500mg IV BID Cardio -Permissive HTN, (247 systolic in ER 06/09) -PRN labatalol 10mg IV to keep Systolic <190, cautiously lower bp as per stroke literature and Neurology recommendation Respiratory -No acute Respiratory issues -Aspiration precautions Elevate head of bed NPO until speech and swallow eval Frequent suctioning GI -No acute GI issues at this time, NPO -NG tube to allow for PO statin as per Neurology recommendation Renal -CK of 1288 on admission, most likely due to Rhabdo after being found on the ground 3+ blood in urine with only 10 RBCs BUN/Cr same today Fluid resuscitation with NS @100 cc/hr CK down to 1001 today, Will follow BMP Endocrine -No known history of DM, however BGM monitoring Q4 and insulin SS ordered to keep glucose with a goal of 160-180 ID -ID consult appreciated Received Vanc and Zosyn yesterday and today Fever most likely not infectious in nature Continue zosyn 3.375 VTE Prophylaxis -SCD's b/l -Will await heparin until Neuro recommendation FEN -Fluids: NS @ 100 cc/hr -Electrolytes: No electrolyte abnormalities at this time. Follow BMP -Nutrition: NPO until speech and swallow eval can be completed Disposition -Continue to monitor in the ICU Problem List - Problems (1) CVA (cerebral vascular accident) Code(s): I63.9 - CEREBRAL INFARCTION, UNSPECIFIED (2) Rhabdomyolysis Code(s): M62.82 - RHABDOMYOLYSIS (3) HTN (hypertension), malignant Code(s): I10 - ESSENTIAL (PRIMARY) HYPERTENSION (4) Altered mental state Code(s): R41.82 - ALTERED MENTAL STATUS, UNSPECIFIED (5) Fever Code(s): R50.9 - FEVER, UNSPECIFIED Visit type - Emergency Visit Emergency Visit: Yes ED Registration Date: 06/09/18 Care time: The patient presented to the Emergency Department on the above date and was hospitalized for further evaluation of their emergent condition. - New Patient This patient is new to me today: No - Critical Care Critical Care patient: Yes Total Critical Care Time (in minutes): 45 Critical Care Statement: The care of this patient involved high complexity decision making to prevent further life threatening deterioration of the patient 's condition and/or to evaluate & treat vital organ system(s) failure or risk of failure.
[2018-06-10] MEDS ORDERED: PNEUMOC 13-VAL CONJ-DIP CRM/PF 0.5 ML DISP.SYRIN IM ONE (10:00)
[2018-06-10] MEDS: levETIRAcetam 500 MG/5 ML INJECTION VIAL IVPB SCH ×2 (10:38→22:38)
--- NOTE | 2018-06-10 10:58 | CONSULT ---
Admitting History and Physical - Primary Care Physician PCP: Kristy Mcallister - Admission History of Present Illness: Patient last seen well on Saturday, 3 days prior to admission when son went away for the weekend, came back to find him on the floor naked and anarthric. Seizure/twitches noted by nursing. Pt was following simple commands and said "no" after the seizure, per nursing. Given Ativan.Not arousable for assessment. To follow. - Past Medical History Musculoskeletal: Yes: Chronic low back pain - Smoking History Smoking history: Unknown if ever smoked Have you smoked in the past 12 months: No - Alcohol/Substance Use Hx Alcohol Use: No History - Admission Reason For Visit: FEVER,AMS - Hearing Hearing: Normal Hearing Aide: No
[2018-06-10] MEDS ORDERED: SODIUM CHLORIDE 1,000 ML IV SCH (12:03)
[2018-06-10] MEDS ORDERED: SODIUM CHLORIDE 250 ML IV STA (12:04)
--- NOTE | 2018-06-10 12:06 | EKG ---
Test Reason : Blood Pressure : / mmHG Vent. Rate : 127 BPM Atrial Rate : 127 BPM P-R Int : 146 ms QRS Dur : 098 ms QT Int : 308 ms P-R-T Axes : -09 057 012 degrees QTc Int : 447 ms SINUS TACHYCARDIA INCOMPLETE RIGHT BUNDLE BRANCH BLOCK BORDERLINE ECG Confirmed by MD BURT, VASU ([id number]) on 06/10/2018 12:06:29 PM Referred By: Confirmed By:VASU DALLAS MD
--- NOTE | 2018-06-10 12:54 | PN ---
Teaching Attending Note Name of Resident: Lefty Her ATTENDING PHYSICIAN STATEMENT I saw and evaluated the patient. I reviewed the resident's note and discussed the case with the resident. I agree with the resident's findings and plan as documented. SUBJECTIVE: Pt seen and examined in the ICU. Seizure episode this AM, given ativan and loaded with keppra. OBJECTIVE: Vital Signs Period Temp Pulse Resp BP Sys/Jaimes Pulse Ox Last 24 Hr 99 F-101.2 F 77-126 17-22 111-247/15-118 94-100 Intake & Output 06/07/18 06/08/18 06/09/18 06/10/18 23:59 23:59 23:59 23:59 Intake Total 350 Output Total 350 300 Balance -350 50 Weight 90.718 kg 99.382 kg Gen: somnolent Heart: RRR Lung: decreased breath sounds at the bases Abd: soft, nontender Ext: no edema CBC, BMP 06/10/18 05:30 06/10/18 05:30 Active Medications Acetaminophen (Ofirmev Injection -) 1,000 mg IVPB Q4H PRN PRN Reason: FEVER Aspirin (Asa -) 300 mg RC DAILY FLIP Last Admin: 06/10/18 09:20 Dose: 300 mg Heparin Sodium (Porcine) (Heparin -) 5,000 unit SQ BID LFIP Last Admin: 06/10/18 09:16 Dose: 5,000 unit Vancomycin HCl 1,000 mg/ (Dextrose) 250 mls @ 166.667 mls/hr IVPB ONCE ONE; Protocol Stop: 06/10/18 14:29 Piperacillin Sod/Tazobactam (Sod 3.375 gm/ Dextrose) 50 mls @ 100 mls/hr IVPB Q8H-IV FLIP; Protocol Last Admin: 06/10/18 09:18 Dose: 100 mls/hr Sodium Chloride (Normal Saline -) 1,000 mls @ 100 mls/hr IV ASDIR FLIP Sodium Chloride (Normal Saline -) 250 mls @ 250 mls/hr IV ASDIR STA Stop: 06/10/18 13:03 Insulin Aspart (Novolog Vial Sliding Scale -) 1 vial SQ ACHS FLIP; Protocol Last Admin: 06/10/18 12:11 Dose: Not Given Labetalol HCl (Normodyne Injection -) 10 mg IVPUSH Q6H PRN PRN Reason: HYPERTENSION Levetiracetam (Keppra Injection -) 500 mg IVPB BID FLIP Last Admin: 06/10/18 10:38 Dose: 500 mg Rosuvastatin Calcium (Crestor -) 40 mg PO HS FLIP ASSESSMENT AND PLAN: Acute CVA Seizure Episode Carotid Stenosis HTN r/o Pneumonia - continue antibiotics - f/u cultures - for CTA neck - echocardiogram - ASA, statin - aspiration precautions - continue antiepileptics - allow permissive hypertension - hip x-ray - DVT prophylaxis - continue ICU monitoring critical care time spent in reviewing chart, evaluating patient and formulating plan 35 min
[2018-06-10] MEDS ORDERED: VANCOMYCIN 1,000 MG in DEXTROSE 5%-WATER - 250 ML IVPB ONE (13:00)
--- NOTE | 2018-06-10 14:41 | PN ---
Progress Note, Physician - Current Medication List Current Medications: Active Medications Acetaminophen (Ofirmev Injection -) 1,000 mg IVPB Q4H PRN PRN Reason: FEVER Aspirin (Asa -) 300 mg RC DAILY [facility] Last Admin: 06/10/18 09:20 Dose: 300 mg Heparin Sodium (Porcine) (Heparin -) 5,000 unit SQ BID [facility] Last Admin: 06/10/18 09:16 Dose: 5,000 unit Piperacillin Sod/Tazobactam (Sod 3.375 gm/ Dextrose) 50 mls @ 100 mls/hr IVPB Q8H-IV FLIP; Protocol Last Admin: 06/10/18 09:18 Dose: 100 mls/hr Sodium Chloride (Normal Saline -) 1,000 mls @ 100 mls/hr IV ASDIR FLIP Last Admin: 06/10/18 13:50 Dose: 100 mls/hr Sodium Chloride (Normal Saline -) 250 mls @ 250 mls/hr IV ASDIR STA Stop: 06/10/18 13:03 Last Admin: 06/10/18 13:51 Dose: 250 mls/hr Insulin Aspart (Novolog Vial Sliding Scale -) 1 vial SQ ACHS [facility]; Protocol Last Admin: 06/10/18 12:11 Dose: Not Given Labetalol HCl (Normodyne Injection -) 10 mg IVPUSH Q6H PRN PRN Reason: HYPERTENSION Levetiracetam (Keppra Injection -) 500 mg IVPB BID [facility] Last Admin: 06/10/18 10:38 Dose: 500 mg Rosuvastatin Calcium (Crestor -) 40 mg PO HS [facility] - Objective Vital Signs: Vital Signs Temperature 99 F 06/10/18 08:00 Pulse Rate 79 06/10/18 13:40 Respiratory Rate 22 06/10/18 13:40 Blood Pressure 148/85 06/10/18 13:40 O2 Sat by Pulse Oximetry (%) 100 06/10/18 08:52 Constitutional: Yes: Calm HENT: Yes: Atraumatic Neck: Yes: Supple Cardiovascular: Yes: Regular Rate and Rhythm Respiratory: Yes: CTA Bilaterally Gastrointestinal: Yes: Normal Bowel Sounds Extremities: Yes: WNL Edema: No Peripheral Pulses WNL: Yes Neurological: Yes: Alert, Other (NOT MOVING R UPPER AND LOWER EXTREMITY) Labs: CBC, BMP 06/10/18 05:30 06/10/18 05:30 INR, PTT INR 1.05 (0.82-1.09) 06/09/18 13:40 Problem List - Problems (1) Altered mental state Assessment/Plan: pt awake not talking mri done neuro consult Code(s): R41.82 - ALTERED MENTAL STATUS, UNSPECIFIED Qualifiers: Altered mental status type: transient alteration of awareness Qualified Code(s): R40.4 - Transient alteration of awareness (2) HTN (hypertension), malignant Assessment/Plan: on meds monitor Code(s): I10 - ESSENTIAL (PRIMARY) HYPERTENSION (3) Fever Assessment/Plan: monitor cxs sent Code(s): R50.9 - FEVER, UNSPECIFIED Qualifiers: Fever type: unspecified Qualified Code(s): R50.9 - Fever, unspecified (4) Rhabdomyolysis Code(s): M62.82 - RHABDOMYOLYSIS Qualifiers: Rhabdomyolysis type: non-traumatic Qualified Code(s): M62.82 - Rhabdomyolysis (5) CVA (cerebral vascular accident) Assessment/Plan: MRI/MRA DONE ..NOTED NEED PT FU NEURO CONTINUE CURRENT MEDS Code(s): I63.9 - CEREBRAL INFARCTION, UNSPECIFIED Qualifiers: CVA mechanism: embolism Laterality of affected vessel: left
[2018-06-10] MEDS ORDERED: DEXTROSE 5%-NORMAL SALINE 1,000 ML IV SCH ×2 (16:30→19:02)
--- NOTE | 2018-06-10 16:39 | CON.ID ---
Consult Consult Specialty:: infectious diseases Reason for Consultation:: ams uti,confusion - History of Present Illness History of Present Illness: patient unable to give hisotry because of his mental condition history obtained from the charts and the staff 77-year-old male with history of hypertension and chronic back pain presents with altered mental status. The patient lives with his son. The son had one on vacation for the weekend. Last saw him approximately 3 days ago. The patient at that time had a small cough but no other symptoms and was alert aware oriented and conversant. Today, the patient's son went to check on the patient upon returning home. Noted that the patient was confused, naked and found down on the ground. Patient is altered and appears to be moving all extremities spontaneously. She was noted have a fever here in the ER. Patient seen immediately by us and sent to the CAT scanner to evaluate for intracranial pathology. on examining the patient now he still has agnoal breathing and his confused - History Source History Provided By: Medical Record Limitations to Obtaining History: Clinical Condition - Past Medical History Cardio/Vascular: Yes: HTN Musculoskeletal: Yes: Chronic low back pain - Alcohol/Substance Use Hx Alcohol Use: No - Smoking History Smoking history: Unknown if ever smoked Have you smoked in the past 12 months: No Home Medications - Allergies Allergies/Adverse Reactions: Allergies Allergy/AdvReac Type Severity Reaction Status Date / Time No Known Allergies Allergy Verified 06/09/18 13:23 - Home Medications Home Medications: Ambulatory Orders NK [No Known Home Medication] 06/09/18 Review of Systems Unable to obtain ROS, reason: unable to obtain Physical Exam Vital Signs: Vital Signs Temperature 99 F 06/10/18 08:00 Pulse Rate 79 06/10/18 16:00 Respiratory Rate 21 06/10/18 16:00 Blood Pressure 141/87 06/10/18 16:00 O2 Sat by Pulse Oximetry (%) 100 06/10/18 08:52 Constitutional: Yes: No Distress, Calm Cardiovascular: Yes: Regular Rate and Rhythm Respiratory: Yes: Regular, CTA Bilaterally Gastrointestinal: Yes: Normal Bowel Sounds, Soft Neurological: Yes: Lethargy, Other (non verbal) Labs: CBC, BMP 06/10/18 05:30 06/10/18 05:30 Imaging - Results Chest X-ray: Report Reviewed, Image Reviewed Cat Scan: Report Reviewed, Image Reviewed Ultrasound: Report Reviewed, Image Reviewed MRI: Report Reviewed, Image Reviewed Assessment/Plan Problem List - Problems (1) Altered mental state Code(s): R41.82 - ALTERED MENTAL STATUS, UNSPECIFIED Qualifiers: Altered mental status type: transient alteration of awareness Qualified Code(s): R40.4 - Transient alteration of awareness (2) CVA (cerebral vascular accident) Code(s): I63.9 - CEREBRAL INFARCTION, UNSPECIFIED Qualifiers: CVA mechanism: embolism Laterality of affected vessel: left (3) Fever Code(s): R50.9 - FEVER, UNSPECIFIED Qualifiers: Fever type: unspecified Qualified Code(s): R50.9 - Fever, unspecified (4) HTN (hypertension), malignant Code(s): I10 - ESSENTIAL (PRIMARY) HYPERTENSION (5) Seizure as late effect of cerebrovascular accident (CVA) Code(s): I69.398 - OTHER SEQUELAE OF CEREBRAL INFARCTION; R56.9 - UNSPECIFIED CONVULSIONS (6) Hyperlipidemia Code(s): E78.5 - HYPERLIPIDEMIA, UNSPECIFIED Qualifiers: Hyperlipidemia type: pure hypercholesterolemia Qualified Code(s): E78.00 - Pure hypercholesterolemia, unspecified; E78.0 - Pure hypercholesterolemia at the moment i do not see any signs of infection in the patient plan will await for all cx reports await for patients mental status to return no abx at this time rest as per the team and cardiology and icu close watch neurologically as according to the notes patient has rt sided weakness cc time 40 min
--- NOTE | 2018-06-10 16:51 | PN ---
Progress Note, Physician Chief Complaint: stroke with aphasia and right hemiparesis History of Present Illness: Since yesterday was improved this am, saying a couple of short words, then observed to have a seizure during ICU medical team rounds. He was given lorazepam and I saw him after that, and he was more lethargic. Patient last seen well on Saturday, 3 days prior to admission when son went away for the weekend, came back to find him on the floor naked and anarthric. Brought in by ems. He is more awake but still not verbal and not moving right side. He has only a history of back pain and complained on Saturday of not feeling well, as if he were getting a cold. - Current Medication List Current Medications: Active Medications Acetaminophen (Ofirmev Injection -) 1,000 mg IVPB Q4H PRN PRN Reason: FEVER Aspirin (Asa -) 300 mg RC DAILY FLIP Last Admin: 06/10/18 09:20 Dose: 300 mg Heparin Sodium (Porcine) (Heparin -) 5,000 unit SQ BID FLIP Last Admin: 06/10/18 09:16 Dose: 5,000 unit Piperacillin Sod/Tazobactam (Sod 3.375 gm/ Dextrose) 50 mls @ 100 mls/hr IVPB Q8H-IV FLIP; Protocol Last Admin: 06/10/18 09:18 Dose: 100 mls/hr Dextrose/Sodium Chloride (D5-Ns -) 1,000 mls @ 100 mls/hr IV ASDIR FLIP Insulin Aspart (Novolog Vial Sliding Scale -) 1 vial SQ ACHS [facility]; Protocol Last Admin: 06/10/18 12:11 Dose: Not Given Labetalol HCl (Normodyne Injection -) 10 mg IVPUSH Q6H PRN PRN Reason: HYPERTENSION Levetiracetam (Keppra Injection -) 500 mg IVPB BID [facility] Last Admin: 06/10/18 10:38 Dose: 500 mg Rosuvastatin Calcium (Crestor -) 40 mg PO HS FLIP - Objective Vital Signs: Vital Signs Temperature 99 F 06/10/18 08:00 Pulse Rate 79 06/10/18 16:00 Respiratory Rate 21 06/10/18 16:00 Blood Pressure 141/87 06/10/18 16:00 O2 Sat by Pulse Oximetry (%) 100 06/10/18 08:52 Neurological: Yes: Other (lethargic, localizes with left arm to noxious stimuli , not with right.) Labs: CBC, BMP 06/10/18 05:30 06/10/18 05:30 INR, PTT INR 1.05 (0.82-1.09) 06/09/18 13:40 - ....Imaging MRI: Report Reviewed, Image Reviewed (Report of MRI reports scattered "lacunar" " infarctions in left hemisphere. To my eyes I would report these as small infarctions as "lacunes" are often associated with a particular local mechanism , and these look embolic to me.) Problem List - Problems (1) Altered mental state Code(s): R41.82 - ALTERED MENTAL STATUS, UNSPECIFIED (2) CVA (cerebral vascular accident) Code(s): I63.9 - CEREBRAL INFARCTION, UNSPECIFIED Qualifiers: CVA mechanism: embolism Laterality of affected vessel: left (3) Fever Code(s): R50.9 - FEVER, UNSPECIFIED (4) HTN (hypertension), malignant Code(s): I10 - ESSENTIAL (PRIMARY) HYPERTENSION (5) Rhabdomyolysis Code(s): M62.82 - RHABDOMYOLYSIS (6) Seizure as late effect of cerebrovascular accident (CVA) Code(s): I69.398 - OTHER SEQUELAE OF CEREBRAL INFARCTION; R56.9 - UNSPECIFIED CONVULSIONS Assessment/Plan Review of findings on MRI and carotid suggest cerebral embolisms and seizure. He likely had emboli, which might be from carotid, though could also be from heart. Would recommend CTA for further evaluation of the carotid to see if he meets NASCET criteria. Would recommend cardiology evaluation to consider possibility of cardioembolic events. Agree with starting keppra for his seizures. Although his strokes are small, it is possible that his profound impairment is postictal.
[2018-06-10] MEDS: LABETALOL HCL 5 MG/1 ML (100MG/20 ML VIAL) IVPUSH PRN (19:18)
[2018-06-10] MEDS ORDERED: ROSUVASTATIN CA 40 MG TABLET PO SCH (22:00)
[2018-06-10] MEDS: ROSUVASTATIN CA 20 MG TABLET (FP) PO SCH (22:19)
[2018-06-10] MEDS ORDERED: ROSUVASTATIN CA 20 MG TABLET (FP) PO SCH (22:43)
[2018-06-11] MEDS: INSULIN SLIDING SCALE (NOVOLOG) 1 VIAL SQ SCH ×4 (06:13→22:01)
[2018-06-11 06:21] LABS: BASO % 0.6 % (0-2.0); EOS % 0.8 % (0-4.5); HEMATOCRIT 41.2 % (35.4-49); HEMOGLOBIN 13.9 GM/dL (11.7-16.9); LYMPH % 17.7 % (8-40); MCH 32.5 pg (25.7-33.7); MCHC 33.7 g/dl (32.0-35.9); MEAN CELL VOLUME 96.4 fl (80-96); MEAN PLT VOLUME 8.6 fl (7.5-11.1); MONO % 10.5 % (3.8-10.2); NEUT % 70.4 % (42.8-82.8); PLATELET COUNT 152 K/MM3 (134-434); RBC 4.27 M/mm3 (4.00-5.60); RDW 13.1 % (11.9-15.9); WHITE BLOOD COUNT 12.9 K/mm3 (4.0-10.0)
[2018-06-11 07:32] LABS: ALBUMIN 3.1 g/dl (3.4-5.0); ALK PHOS 40 U/L (45-117); ANION GAP 10 (8-16); BILIRUBIN,TOTAL 0.7 mg/dL (0.2-1.0); BLOOD UREA NITROGEN 21 mg/dL (7-18); CALCIUM 8.1 mg/dL (8.5-10.1); CHLORIDE 112 mmol/L (98-107); CO2 24 mmol/L (21-32); CREATININE 0.9 mg/dL (0.7-1.3); GLUCOSE,RANDOM 118 mg/dL (74-106); MAGNESIUM 2.2 mg/dL (1.8-2.4); PHOSPHOROUS 2.8 mg/dL (2.5-4.9); POTASSIUM 3.6 mmol/L (3.5-5.1); SGOT/AST 37 U/L (15-37); SGPT/ALT 58 U/L (12-78); SODIUM 146 mmol/L (136-145)
[2018-06-11] MEDS ORDERED: D5-LR+20 MEQ KCL - 20 MEQ/1,000 ML INFUS.BAG IV SCH (08:30)
[2018-06-11] MEDS ORDERED: PT OWN MED DRAWER 7, Y5N ONE ×2 (09:04→21:18)
[2018-06-11] MEDS: levETIRAcetam 500 MG/5 ML INJECTION VIAL IVPB SCH ×2 (09:13→21:41)
[2018-06-11] MEDS: ASPIRIN 300 MG SUPP.RECT RC SCH (09:14)
[2018-06-11] MEDS: HEPARIN NA (PORCINE) 5,000 UNITS/ML 1ML VIAL SQ SCH ×2 (09:14→21:41)
--- NOTE | 2018-06-11 09:27 | PN ---
Physical Exam: SUBJECTIVE: Patient seen and examined in the ICU. Able to follow commands and speak simple words and responses today are appropriate. Resting more comfortably in bed than yesterday. OBJECTIVE: Vital Signs Period Temp Pulse Resp BP Sys/Jaimes Pulse Ox Last 24 Hr 98.3 F-99 F 77-97 18-27 111-198/76-117 100-100 GENERAL: Awake, alert, in no acute distress. HEAD: Normal with no signs of trauma. EYES: Pt unable to perform EOM testing. Right sided lid lag, PERRL, sclera anicteric EARS, NOSE, THROAT: Ears normal, nares patent, oropharynx clear without exudates. Moist mucous membranes. NECK: decreased range of motion, supple without lymphadenopathy, JVD, or masses. LUNGS: Breath sounds equal, clear to auscultation bilaterally. No wheezes, and no crackles. No accessory muscle use. HEART: regular rate and rythm, normal S1 and S2 without murmur, rub or gallop. ABDOMEN: Soft, nontender, not distended, normoactive bowel sounds, no guarding, no rebound, no masses. No hepatomegaly or splenomegaly. MUSCULOSKELETAL: Unable to determine ROM on right due to weakness. No bony deformities or tenderness. No CVA tenderness. UPPER EXTREMITIES: warm, well-perfused. No cyanosis. No clubbing. Cap refill <2 seconds. No peripheral edema. LOWER EXTREMITIES: warm, well-perfused. No calf tenderness. No peripheral edema. NEUROLOGICAL: Pt unable to perform CN exam, Speech is improved. 1/5 weakness of RUE, 0/5 weakness RLE PSYCHIATRIC: Good eye contact, slow but appropriate responses SKIN: Warm, dry, normal turgor, no rashes or lesions noted. Laboratory Results - last 24 hr 06/10/18 06/10/18 06/10/18 05:30 05:30 12:10 WBC RBC Hgb Hct MCV MCH MCHC RDW Plt Count MPV Absolute Neuts (auto) Neutrophils % Lymphocytes % Monocytes % Eosinophils % Basophils % Nucleated RBC % Sodium Potassium Chloride Carbon Dioxide Anion Gap BUN Creatinine Creat Clearance w eGFR POC Glucometer [phone] Random Glucose Calcium Phosphorus Magnesium Total Bilirubin AST ALT Alkaline Phosphatase Creatine Kinase Creatine Kinase Index Cancelled CK-MB (CK-2) Cancelled Total Protein Albumin TSH 0.51 06/10/18 06/11/18 06/11/18 22:41 05:30 05:30 WBC 12.9 H RBC 4.27 Hgb 13.9 Hct 41.2 MCV 96.4 H MCH 32.5 MCHC 33.7 RDW 13.1 Plt Count 152 MPV 8.6 Absolute Neuts (auto) 9.1 Neutrophils % 70.4 Lymphocytes % 17.7 D Monocytes % 10.5 H Eosinophils % 0.8 D Basophils % 0.6 Nucleated RBC % 0 Sodium 146 H Potassium 3.6 Chloride 112 H Carbon Dioxide 24 Anion Gap 10 BUN 21 H Creatinine 0.9 Creat Clearance w eGFR > 60 POC Glucometer 114.62732 Random Glucose 118 H Calcium 8.1 L Phosphorus 2.8 Magnesium 2.2 Total Bilirubin 0.7 AST 37 D ALT 58 Alkaline Phosphatase 40 L Creatine Kinase 369 H Creatine Kinase Index CK-MB (CK-2) Total Protein 6.0 L Albumin 3.1 L TSH 06/11/18 06/11/18 06:05 06:30 WBC RBC Hgb Hct MCV MCH MCHC RDW Plt Count MPV Absolute Neuts (auto) Neutrophils % Lymphocytes % Monocytes % Eosinophils % Basophils % Nucleated RBC % Sodium Potassium Chloride Carbon Dioxide Anion Gap BUN Creatinine Creat Clearance w eGFR POC Glucometer 132.59108 Random Glucose Calcium Phosphorus Magnesium Total Bilirubin AST ALT Alkaline Phosphatase Creatine Kinase Cancelled Creatine Kinase Index CK-MB (CK-2) Total Protein Albumin TSH Active Medications Generic Name Dose Route Start Last Admin Trade Name Freq PRN Reason Stop Dose Admin Acetaminophen 1,000 mg 06/09/18 17:50 Ofirmev Injection - IVPB Q4H PRN FEVER Aspirin 300 mg 06/09/18 17:45 06/11/18 09:14 Asa - RC 300 mg DAILY FLIP Administration Heparin Sodium (Porcine) 5,000 unit 06/09/18 22:00 06/11/18 09:14 Heparin - SQ 5,000 unit BID FLIP Administration Dextrose/Lactated Ringer's 20 meq in 1,000 mls @ 75 mls/hr 06/11/18 08:30 10/19 09:14 D5-Lr+20 Meq Kcl - IV 75 mls/hr ASDIR FLIP Administration Insulin Aspart 1 vial 06/09/18 22:00 06/11/18 06:13 Novolog Vial Sliding Scale - SQ Not Given ACHS [facility] Protocol Labetalol HCl 10 mg 06/10/18 09:41 06/10/18 19:18 Normodyne Injection - IVPUSH 10 mg Q6H PRN Administration HYPERTENSION Levetiracetam 500 mg 06/10/18 11:00 06/11/18 09:13 Keppra Injection - IVPB 500 mg BID FLIP Administration Rosuvastatin Calcium 40 mg 06/10/18 23:00 06/10/18 22:19 Crestor - PO Not Given HS FLIP ASSESSMENT/PLAN: 77 yo male admitted to the ICU s/p CVA (did NOT receive tPA) with concurrent Rhabdomyolysis Neuro -Neurology consult appreciated -Acute CVA 300mg ASA rectally Daily, Crestor 40mg PO Daily Permissive HTN as per below Negative CT noted, MRI suggestive of multiple small cortical infarcts on review Head and Neck CTA as carotid doplar showed stenosis Discussed with Vascular surgery - will follow recommendation -Seizure yesterday Keppra 500mg IV BID Cardio -Permissive HTN, (247 systolic in ER 06/09) -PRN labatalol 10mg IV to keep Systolic <190, cautiously lower bp as per stroke literature and Neurology recommendation Respiratory -No acute Respiratory issues -Aspiration precautions Elevate head of bed Dysphagia chopped diet with thickened liquids GI -No acute GI issues at this time Renal -Rhabdomyolysis - resolving 3+ blood in urine with only 10 RBCs BUN/Cr same today Fluid resuscitation CK down to 369 today, no longer need to follow CK Continue to monitor CMP and urine output Endocrine -No known history of DM, however BGM monitoring Q4 and insulin SS ordered to keep glucose with a goal of < 180 ID -ID consult appreciated Fever most likely not infectious in nature D/C Zosyn VTE Prophylaxis -Heparin 5000 units SQ BID FEN -Fluids: D5 LR + 20mEq K+ @ 75 cc/hr -Electrolytes: No electrolyte abnormalities at this time. Follow BMP -Nutrition: Dysphagia chopped diet with thickened liquids, medications crushed into applesauce Disposition -Continue to monitor in the ICU Problem List - Problems (1) CVA (cerebral vascular accident) Code(s): I63.9 - CEREBRAL INFARCTION, UNSPECIFIED Qualifiers: CVA mechanism: embolism Laterality of affected vessel: left (2) Rhabdomyolysis Code(s): M62.82 - RHABDOMYOLYSIS Qualifiers: Rhabdomyolysis type: non-traumatic Qualified Code(s): M62.82 - Rhabdomyolysis (3) HTN (hypertension), malignant Code(s): I10 - ESSENTIAL (PRIMARY) HYPERTENSION (4) Altered mental state Code(s): R41.82 - ALTERED MENTAL STATUS, UNSPECIFIED Qualifiers: Altered mental status type: transient alteration of awareness Qualified Code(s): R40.4 - Transient alteration of awareness (5) Fever Code(s): R50.9 - FEVER, UNSPECIFIED Qualifiers: Fever type: unspecified Qualified Code(s): R50.9 - Fever, unspecified Visit type - Emergency Visit Emergency Visit: Yes ED Registration Date: 06/09/18 Care time: The patient presented to the Emergency Department on the above date and was hospitalized for further evaluation of their emergent condition. - New Patient This patient is new to me today: No - Critical Care Critical Care patient: Yes Total Critical Care Time (in minutes): 35 Critical Care Statement: The care of this patient involved high complexity decision making to prevent further life threatening deterioration of the patient 's condition and/or to evaluate & treat vital organ system(s) failure or risk of failure.
--- NOTE | 2018-06-11 10:24 | CON.CARD ---
Consult Consult Specialty:: Cardiology Referred by:: ICU Reason for Consultation:: Acute stroke - History of Present Illness Chief Complaint: Acute stroke - right sided weakness and aphasia History of Present Illness: 77 yo male found on floor naked and aphasic, found to have right hemiparesis, MRI shows scattered acute/subacute left lacunar strokes. Since admission has improved saying a few short words, then observed to have a seizure breaking with Ativan and post-ictal lethargy. - History Source History Provided By: Medical Record Limitations to Obtaining History: Clinical Condition - Past Medical History Cardio/Vascular: Yes: HTN Musculoskeletal: Yes: Chronic low back pain - Alcohol/Substance Use Hx Alcohol Use: No - Smoking History Smoking history: Unknown if ever smoked Have you smoked in the past 12 months: No Home Medications - Allergies Allergies/Adverse Reactions: Allergies Allergy/AdvReac Type Severity Reaction Status Date / Time No Known Allergies Allergy Verified 06/09/18 13:23 - Home Medications Home Medications: Ambulatory Orders NK [No Known Home Medication] 06/09/18 Review of Systems - Review of Systems Neurological: reports: Change in Speech, Confusion, Weakness Vital Signs: Vital Signs Temperature 98.9 F 06/11/18 10:00 Pulse Rate 86 06/11/18 10:00 Respiratory Rate 22 06/11/18 10:00 Blood Pressure 181/94 06/11/18 10:00 O2 Sat by Pulse Oximetry (%) 100 06/11/18 07:52 Constitutional: Yes: No Distress, Calm Neck: Yes: Supple Respiratory: Yes: Regular, Diminished Gastrointestinal: Yes: Normal Bowel Sounds, Soft Cardiovascular: Yes: Regular Rate and Rhythm Heart Sounds: Yes: S1, S2 Edema: No - Other Data Labs, Other Data: CBC, BMP 06/11/18 05:30 06/11/18 05:30 INR, PTT INR 1.05 (0.82-1.09) 06/09/18 13:40 ST @ 127 IRBBB Ejection Fraction %: LVEF > or = 40 % Imaging - Results Chest X-ray: Report Reviewed (NAD) Cat Scan: Report Reviewed (L&R common carotid: 70% stenosis) Ultrasound: Report Reviewed (prox LICA 50-70%) MRI: Report Reviewed (Brain MRI: Scattered left cerebral acute/subacute lacunar infarcs) Problem List - Problems (1) Altered mental state Code(s): R41.82 - ALTERED MENTAL STATUS, UNSPECIFIED Qualifiers: Altered mental status type: transient alteration of awareness Qualified Code(s): R40.4 - Transient alteration of awareness (2) CVA (cerebral vascular accident) Code(s): I63.9 - CEREBRAL INFARCTION, UNSPECIFIED Qualifiers: CVA mechanism: embolism Laterality of affected vessel: left (3) Fever Code(s): R50.9 - FEVER, UNSPECIFIED Qualifiers: Fever type: unspecified Qualified Code(s): R50.9 - Fever, unspecified (4) HTN (hypertension), malignant Code(s): I10 - ESSENTIAL (PRIMARY) HYPERTENSION (5) Seizure as late effect of cerebrovascular accident (CVA) Code(s): I69.398 - OTHER SEQUELAE OF CEREBRAL INFARCTION; R56.9 - UNSPECIFIED CONVULSIONS (6) Hyperlipidemia Code(s): E78.5 - HYPERLIPIDEMIA, UNSPECIFIED Qualifiers: Hyperlipidemia type: pure hypercholesterolemia Qualified Code(s): E78.00 - Pure hypercholesterolemia, unspecified; E78.0 - Pure hypercholesterolemia Assessment/Plan Echo: Normal LV size and fxn, normal atrial sizes 1. Acute CVA - scattered left lacunar strokes 2. Seizure Episode 3. Bilateral Carotid Stenosis 4. HTN urgency 5. Possible aspiration pna 6. Microalbuminuria P:1. Continue telemetry monitoring to r/o PAF, would benefit from long-term arrhythmia monitoring if no atrial arrhythmias detected in house 2. ASA, Crestor monitor CPK, start Diovan, DVT prophylaxis, empiric abx course 3. S&S eval, PT, neuro input appreciated 4. Thank you for consultative opportunity
--- NOTE | 2018-06-11 10:33 | CONSULT ---
Admitting History and Physical - Primary Care Physician PCP: Kristy Mcallister - Admission History of Present Illness: Patient last seen well on Saturday, 3 days prior to admission when son went away for the weekend, came back to find him on the floor naked and anarthric. Brought in by ems.. Seizure activity yesterday. Pt given Keppra/Ativan and was lethargic yesterday, unable to be assessed. 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 History - Admission Reason For Visit: FEVER,AMS - Diagnostics MRI: Report Reviewed (MRI reports scattered "lacunar"" infarctions in left hemisphere) - General Mental Status: Alert and Oriented, Awake and Alert, Able to Follow Commands Attention: Distractible, Mild Impairment Ability to Follow Directions: Good Head/Neck Control: Good - Hearing Hearing: Normal Hearing Aide: No Speech Evaluation - Communication Primary Language: SWED[place] Communication: Yes: Aphasia Oral Expression Ability: Yes: Moderate Impairment, Severe Impairment - Speech Production Apraxia: Yes Able to Make Needs Known: Yes: Moderately Impaired, Severely Impaired Intelligibility: Yes: Mildly Impaired - Speech Characteristics Voice Loudness: Normal Voice Pitch: Yes: Normal Voice Phonatory-based Quality: Yes: Normal Speech Pattern: Impaired Speech Clarity: < 75% Nasal Resonance: Normal Articulation: Yes: Precise (Occasional inconsistent phonemic errors c/w Aphasia) - Language/Auditory Comprehension Follows: Yes: 1 Stage Simple Commands Observation: Able to respond to yes/no queries: Yes, Yes/No Confusion: No, Comprehends Conversational Speech: Yes, Benefits from Slow Speech: Yes, Benefits from Repetiton: Yes - Language/Verbal Expression Aphasia: Yes: Nonfluent, Anomia, Impaired Repetition, Apraxia, Sound Errors, Grammatic Errors (mostly 1-2 word responses. Occasional phrase produced) Able to Respond to Simple Queries: Yes: Moderately Impaired, Severely Impaired Able to Communicate Wants and Needs: Yes: Moderately Impaired, Severely Impaired Functional Communication Status: Yes: Moderately Impaired, Severely Impaired Aware of Errors: Yes Attempts to Correct Errors: Yes Use of Gestures: No - Swallow Evaluation/Bedside Assessment Current Nutritional Intake: NPO Oral Secretions: Yes: WFL Dentition: Yes: Missing Teeth (only a couple of teeth) Facial Symmetry at Rest: Symmetrical Facial Symmetry on Retraction: Symmetrical Against Resistance Opening: Normal Against Resistance Closing: Normal Pucker Lips: Normal Smile: Normal Lingual Movement: Normal, Symmetric Lingual Speed of Movement: Reduced (Apraxia) Lingual Movement Strgth Against Opposition: Normal Lingual Movement Characteristics: Normal Velopharyngeal Movement: Normal Laryngeal Movement: Labored,delay initiation Rate of Intake: WFL Chewing: Impaired Oral Prep Time: Increased A-P Transit: WFL Timing of Swallow: Delayed Coughing/Throat Clear: Yes (rare throat clear but risk suspected sec Apraxia) Recommendations - Speech Evaluation, Impression/Plan Impression: Mod to Severe Aphasia with difficulty following 1-2 step commands, with fairly accurate Y/N responses to simple questions. Difficulty retrieving words with fair naming. Pt able to respond to simple questions 25% of time, with 1-2 word responses predominantly, and some phrases. Inconsistent sound errors and difficulty pointing with left hand c/w apraxia. Swallow delayed but fairly strong.Aspiration risk. Seems fairly oriented. Excellent Rehab candidate. - Disposition Discharge to: Rehabilitation Center - Dysphagia Impressions/Plan Dysphagia Impressions: Mild Impairment, Ongoing Evaluation *Silent aspiration: cannot be R/O at bedside Dysphagia Treatment Plan: Small Bites, Chin Tuck/Down, Trial Feedings, Safe Rate , 1/2 tsp. at a time, Elevate HOB during feed Recommendations: Modified Barium Swallow (if cough,congestion,fever) - Recommendations Diet Consistency: Dysphagia Minced Medication Administration: Crushed with applesauce Liquids: [place] Thick
--- NOTE | 2018-06-11 11:51 | PN ---
Teaching Attending Note Name of Resident: Lefty Her ATTENDING PHYSICIAN STATEMENT I saw and evaluated the patient. I reviewed the resident's note and discussed the case with the resident. I agree with the resident's findings and plan as documented. SUBJECTIVE: Pt seen and examined in the ICU. Much more alert, awake today. Still with right sided hemiparesis. OBJECTIVE: Vital Signs Period Temp Pulse Resp BP Sys/Jaimes Pulse Ox Last 24 Hr 98.3 F-99 F 79-97 18-27 119-198/76-117 100-100 Intake & Output 06/08/18 06/09/18 06/10/18 06/11/18 23:59 23:59 23:59 23:59 Intake Total 2300 1200 Output Total 350 1100 500 Balance -350 1200 700 Weight 90.718 kg 99.382 kg 100.335 kg Gen: more alert, awake Heart: RRR Lung: decreased breath sounds at the bases Abd: soft, nontender Ext: no edema CBC, BMP 06/11/18 05:30 06/11/18 05:30 Active Medications Acetaminophen (Ofirmev Injection -) 1,000 mg IVPB Q4H PRN PRN Reason: FEVER Aspirin (Asa -) 300 mg RC DAILY [facility] Last Admin: 06/11/18 09:14 Dose: 300 mg Heparin Sodium (Porcine) (Heparin -) 5,000 unit SQ BID [facility] Last Admin: 06/11/18 09:14 Dose: 5,000 unit Dextrose/Lactated Ringer's (D5-Lr+20 Meq Kcl -) 20 meq in 1,000 mls @ 75 mls/ hr IV ASDIR [facility] Last Admin: 06/11/18 09:14 Dose: 75 mls/hr Insulin Aspart (Novolog Vial Sliding Scale -) 1 vial SQ ACHS [facility]; Protocol Last Admin: 06/11/18 11:06 Dose: Not Given Labetalol HCl (Normodyne Injection -) 10 mg IVPUSH Q6H PRN PRN Reason: HYPERTENSION Last Admin: 06/10/18 19:18 Dose: 10 mg Levetiracetam (Keppra Injection -) 500 mg IVPB BID [facility] Last Admin: 06/11/18 09:13 Dose: 500 mg Rosuvastatin Calcium (Crestor -) 40 mg PO HS [facility] Last Admin: 06/10/18 22:19 Dose: Not Given ASSESSMENT AND PLAN: Acute CVA Seizure Episode Rhabdomyolysis Carotid Stenosis HTN Atelectasis - ASA, statin - aspiration precautions - continue antiepileptics - allow permissive hypertension - vascular surgery eval - DVT prophylaxis - continue ICU monitoring critical care time spent in reviewing chart, evaluating patient and formulating plan 35 min
--- NOTE | 2018-06-11 12:58 | PN ---
Progress Note (short form) - Note Progress Note: Vascular Surgery Pt seen and examined. Doing much better as per medical team. On exam pt has better movement of RUE and RLE. Muscle strength as far as credit compliance officer is almost equal to the other side. Carotid doppler shows less than 50% stenosis in bl carotids according the PSV, EDV. CTA reviewed as well. At best 70% stenosis bl. MRI shows lacunar infarcts. Looks like the stroke could be more posterior. Neurology input for location. Currently no intervention needed due to current deficits. Pt should go to rehab for 6 weeks before any intervention would be needed on his carotids. Medical management. Álvaro gallardo DO
[2018-06-11] MEDS ORDERED: amLODIPine BESYLATE 5 MG TABLET (FP) PO SCH (13:00)
[2018-06-11 14:23] VITALS: BMI 34.6
--- NOTE | 2018-06-11 14:37 | PN ---
Progress Note, Physician History of Present Illness: patient much more awake and alert son in the room understands and obeys commands - Current Medication List Current Medications: Active Medications Acetaminophen (Ofirmev Injection -) 1,000 mg IVPB Q4H PRN PRN Reason: FEVER Amlodipine Besylate (Norvasc -) 5 mg PO DAILY [facility] Last Admin: 06/11/18 13:14 Dose: 5 mg Aspirin (Asa -) 300 mg RC DAILY [facility] Last Admin: 06/11/18 09:14 Dose: 300 mg Heparin Sodium (Porcine) (Heparin -) 5,000 unit SQ BID [facility] Last Admin: 06/11/18 09:14 Dose: 5,000 unit Dextrose/Lactated Ringer's (D5-Lr+20 Meq Kcl -) 20 meq in 1,000 mls @ 75 mls/ hr IV ASDIR [facility] Last Admin: 06/11/18 09:14 Dose: 75 mls/hr Insulin Aspart (Novolog Vial Sliding Scale -) 1 vial SQ [facility]; Protocol Last Admin: 06/11/18 11:06 Dose: Not Given Labetalol HCl (Normodyne Injection -) 10 mg IVPUSH Q6H PRN PRN Reason: HYPERTENSION Last Admin: 06/10/18 19:18 Dose: 10 mg Levetiracetam (Keppra Injection -) 500 mg IVPB BID [facility] Last Admin: 06/11/18 09:13 Dose: 500 mg Rosuvastatin Calcium (Crestor -) 40 mg PO HS [facility] Last Admin: 06/10/18 22:19 Dose: Not Given - Objective Vital Signs: Vital Signs Temperature 98.9 F 06/11/18 10:00 Pulse Rate 89 06/11/18 12:01 Respiratory Rate 22 06/11/18 12:01 Blood Pressure 194/93 06/11/18 12:01 O2 Sat by Pulse Oximetry (%) 100 06/11/18 07:52 Constitutional: Yes: No Distress, Calm Cardiovascular: Yes: Regular Rate and Rhythm Respiratory: Yes: Regular, CTA Bilaterally Gastrointestinal: Yes: Normal Bowel Sounds, Soft Musculoskeletal: Yes: WNL Extremities: Yes: WNL Neurological: Yes: Other (patient with rt sided weakness which is improving) Psychiatric: Yes: Alert Labs: CBC, BMP 06/11/18 05:30 06/11/18 05:30 INR, PTT INR 1.05 (0.82-1.09) 06/09/18 13:40 Assessment/Plan Problem List - Problems (1) Altered mental state Code(s): R41.82 - ALTERED MENTAL STATUS, UNSPECIFIED Qualifiers: Altered mental status type: transient alteration of awareness Qualified Code(s): R40.4 - Transient alteration of awareness (2) CVA (cerebral vascular accident) Code(s): I63.9 - CEREBRAL INFARCTION, UNSPECIFIED Qualifiers: CVA mechanism: embolism Laterality of affected vessel: left (3) Fever Code(s): R50.9 - FEVER, UNSPECIFIED Qualifiers: Fever type: unspecified Qualified Code(s): R50.9 - Fever, unspecified (4) HTN (hypertension), malignant Code(s): I10 - ESSENTIAL (PRIMARY) HYPERTENSION (5) Seizure as late effect of cerebrovascular accident (CVA) Code(s): I69.398 - OTHER SEQUELAE OF CEREBRAL INFARCTION; R56.9 - UNSPECIFIED CONVULSIONS (6) Hyperlipidemia Code(s): E78.5 - HYPERLIPIDEMIA, UNSPECIFIED Qualifiers: Hyperlipidemia type: pure hypercholesterolemia Qualified Code(s): E78.00 - Pure hypercholesterolemia, unspecified; E78.0 - Pure hypercholesterolemia at the moment i do not see any signs of infection in the patient plan will await for all cx reports await for patients mental status to return no abx at this time rest as per the team and cardiology and icu all cx reports noted cc time 40 min
[2018-06-11] MEDS: LABETALOL HCL 5 MG/1 ML (100MG/20 ML VIAL) IVPUSH PRN ×2 (15:07→20:31)
--- NOTE | 2018-06-11 15:43 | PN ---
Progress Note, Physician - Current Medication List Current Medications: Active Medications Acetaminophen (Ofirmev Injection -) 1,000 mg IVPB Q4H PRN PRN Reason: FEVER Amlodipine Besylate (Norvasc -) 5 mg PO DAILY [facility] Last Admin: 06/11/18 13:14 Dose: 5 mg Aspirin (Asa -) 300 mg RC DAILY [facility] Last Admin: 06/11/18 09:14 Dose: 300 mg Heparin Sodium (Porcine) (Heparin -) 5,000 unit SQ BID [facility] Last Admin: 06/11/18 09:14 Dose: 5,000 unit Dextrose/Lactated Ringer's (D5-Lr+20 Meq Kcl -) 20 meq in 1,000 mls @ 75 mls/ hr IV ASDIR [facility] Last Admin: 06/11/18 09:14 Dose: 75 mls/hr Insulin Aspart (Novolog Vial Sliding Scale -) 1 vial SQ ACHS [facility]; Protocol Last Admin: 06/11/18 11:06 Dose: Not Given Labetalol HCl (Normodyne Injection -) 10 mg IVPUSH Q6H PRN PRN Reason: HYPERTENSION Last Admin: 06/11/18 15:07 Dose: 10 mg Levetiracetam (Keppra Injection -) 500 mg IVPB BID [facility] Last Admin: 06/11/18 09:13 Dose: 500 mg Rosuvastatin Calcium (Crestor -) 40 mg PO HS [facility] Last Admin: 06/10/18 22:19 Dose: Not Given - Objective Vital Signs: Vital Signs Temperature 99.8 F H 06/11/18 15:00 Pulse Rate 90 06/11/18 15:00 Respiratory Rate 22 06/11/18 15:00 Blood Pressure 211/96 06/11/18 15:00 O2 Sat by Pulse Oximetry (%) 100 06/11/18 07:52 Constitutional: Yes: No Distress HENT: Yes: Atraumatic Neck: Yes: Supple Cardiovascular: Yes: Regular Rate and Rhythm Respiratory: Yes: CTA Bilaterally Gastrointestinal: Yes: Normal Bowel Sounds Extremities: Yes: WNL Edema: No Neurological: Yes: Alert Labs: CBC, BMP 06/11/18 05:30 06/11/18 05:30 INR, PTT INR 1.05 (0.82-1.09) 06/09/18 13:40 Problem List - Problems (1) Altered mental state Assessment/Plan: pt doing well alert Code(s): R41.82 - ALTERED MENTAL STATUS, UNSPECIFIED Qualifiers: Altered mental status type: transient alteration of awareness Qualified Code(s): R40.4 - Transient alteration of awareness (2) HTN (hypertension), malignant Assessment/Plan: on meds monitor Code(s): I10 - ESSENTIAL (PRIMARY) HYPERTENSION (3) Fever Assessment/Plan: on abx cxs sent Code(s): R50.9 - FEVER, UNSPECIFIED Qualifiers: Fever type: unspecified Qualified Code(s): R50.9 - Fever, unspecified (4) Rhabdomyolysis Code(s): M62.82 - RHABDOMYOLYSIS Qualifiers: Rhabdomyolysis type: non-traumatic Qualified Code(s): M62.82 - Rhabdomyolysis (5) CVA (cerebral vascular accident) Assessment/Plan: need PT Code(s): I63.9 - CEREBRAL INFARCTION, UNSPECIFIED Qualifiers: CVA mechanism: embolism Laterality of affected vessel: left Assessment/Plan cc time 35 min
--- NOTE | 2018-06-11 19:21 | PN ---
Progress Note (short form) - Note Progress Note: 77-year-old male with history of hypertension and chronic back pain presents with altered mental status. The patient lives with his son. The son had one on vacation for the weekend. Last saw him approximately 3 days ago. The patient at that time had a small cough but no other symptoms and was alert aware oriented and conversant. Today, the patient's son went to check on the patient upon returning home. Noted that the patient was confused, naked and found down on the ground. Patient is altered and appears to be moving all extremities spontaneously. She was noted have a fever here in the ER. Patient seen immediately by us and sent to the CAT scanner to evaluate for intracranial pathology. FU : mild word finding difficulty and R hemiparesis + MRI for L MCA stroke and + > 50-70% on ASA and statin CTA IMPRESSION: See discussion above. 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 Normal enhancement of the left vertebral artery without gross evidence of stenosis. There is focal narrowing in the mid basilar artery with suggestion of 50% stenosis. Calcified plaques at the right common carotid bifurcation with approximately 70% narrowing of its lumen. Soft and calcified plaques at the left common carotid bifurcation and bulb with approximately 70% narrowing of its lumen. Calcified plaques in the cavernous carotid artery, bilaterally. Intracranially, there is no evidence of a focal hemodynamically significant stenosis, aneurysm or major artery cutoff seen within the anterior and posterior circulation. MRI BRAIN: IMPRESSION: Moderate atrophy and chronic microvascular ischemic disease changes. Scattered left cerebral acute/subacute lacunar infarcts, as described above. Correlate clinically for further evaluation and follow-up A preliminary report was forwarded by the [facility], Doppler: Impression: A stenosis of at least 50-70% is seen involving the proximal left internal carotid artery. The Doppler exam is falsely negative in regards to the right carotid artery given findings identified on recently performed CT angiography as discussed above. Consideration may be given to follow-up CT angiography due to motion artifact on the initial angiographic study. Vital Signs Temperature 99.2 F 06/11/18 19:01 Pulse Rate 100 H 06/11/18 19:01 Respiratory Rate 20 06/11/18 19:01 Blood Pressure 202/84 06/11/18 19:01 O2 Sat by Pulse Oximetry (%) 100 06/11/18 07:52 CBCD WBC 12.9 K/mm3 (4.0-10.0) H 06/11/18 05:30 RBC 4.27 M/mm3 (4.00-5.60) 06/11/18 05:30 Hgb 13.9 GM/dL (11.7-16.9) 06/11/18 05:30 Hct 41.2 % (35.4-49) 06/11/18 05:30 MCV 96.4 fl (80-96) H 06/11/18 05:30 MCHC 33.7 g/dl (32.0-35.9) 06/11/18 05:30 RDW 13.1 % (11.9-15.9) 06/11/18 05:30 Plt Count 152 K/MM3 (134-434) 06/11/18 05:30 MPV 8.6 fl (7.5-11.1) 06/11/18 05:30 CMP Sodium 146 mmol/L (136-145) H 06/11/18 05:30 Potassium 3.6 mmol/L (3.5-5.1) 06/11/18 05:30 Chloride 112 mmol/L (98-107) H 06/11/18 05:30 Carbon Dioxide 24 mmol/L (21-32) 06/11/18 05:30 Anion Gap 10 (8-16) 06/11/18 05:30 BUN 21 mg/dL (7-18) H 06/11/18 05:30 Creatinine 0.9 mg/dL (0.7-1.3) 06/11/18 05:30 Creat Clearance w eGFR > 60 (>60) 06/11/18 05:30 Calcium 8.1 mg/dL (8.5-10.1) L 06/11/18 05:30 Total Bilirubin 0.7 mg/dL (0.2-1.0) 06/11/18 05:30 AST 37 U/L (15-37) D 06/11/18 05:30 ALT 58 U/L (12-78) 06/11/18 05:30 Alkaline Phosphatase 40 U/L (45-117) L 06/11/18 05:30 Total Protein 6.0 g/dl (6.4-8.2) L 06/11/18 05:30 Albumin 3.1 g/dl (3.4-5.0) L 06/11/18 05:30 AP : Left MCA stroke , with symptomatic L ICA stenosis eresidual Right heimparesis and partial aphasia uncontrolled BP and will need to optimize -spoke to nurse , labetolol PRN again now was on ASA /statin prior to event suspect this will require vascular intervention ie CEA left message w/ Dr Wright , depending on when can done will decide if requires bridge with AC vs Antiplatelet DR OLSEN [phone]
[2018-06-11] MEDS: ROSUVASTATIN CA 20 MG TABLET (FP) PO SCH (21:42)
[2018-06-12] MEDS: LABETALOL HCL 5 MG/1 ML (100MG/20 ML VIAL) IVPUSH PRN ×2 (05:13→12:20)
[2018-06-12] MEDS: INSULIN SLIDING SCALE (NOVOLOG) 1 VIAL SQ SCH ×4 (06:15→22:30)
[2018-06-12 06:38] LABS: BASO % 0.5 % (0-2.0); EOS % 1.7 % (0-4.5); HEMATOCRIT 39.9 % (35.4-49); HEMOGLOBIN 13.4 GM/dL (11.7-16.9); LYMPH % 18.5 % (8-40); MCH 31.9 pg (25.7-33.7); MCHC 33.5 g/dl (32.0-35.9); MEAN CELL VOLUME 95.1 fl (80-96); MEAN PLT VOLUME 8.4 fl (7.5-11.1); MONO % 10.9 % (3.8-10.2); NEUT % 68.4 % (42.8-82.8); PLATELET COUNT 165 K/MM3 (134-434); RDW 13.1 % (11.9-15.9); WHITE BLOOD COUNT 11.3 K/mm3 (4.0-10.0)
[2018-06-12 06:54] LABS: CHLORIDE 107 mmol/L (98-107); SODIUM 143 mmol/L (136-145)
[2018-06-12 07:01] LABS: ALBUMIN 3.1 g/dl (3.4-5.0); ALK PHOS 47 U/L (45-117); ANION GAP 7 (8-16); BILIRUBIN,TOTAL 0.7 mg/dL (0.2-1.0); BLOOD UREA NITROGEN 12 mg/dL (7-18); CALCIUM 8.8 mg/dL (8.5-10.1); CO2 29 mmol/L (21-32); CREATININE 0.8 mg/dL (0.7-1.3); GLUCOSE,RANDOM 164 mg/dL (74-106); MAGNESIUM 2.1 mg/dL (1.8-2.4); PHOSPHOROUS 3.2 mg/dL (2.5-4.9); SGOT/AST 44 U/L (15-37); SGPT/ALT 74 U/L (12-78)
[2018-06-12] MEDS ORDERED: amLODIPine BESYLATE 10 MG TABLET (FP) PO SCH (07:33)
[2018-06-12] MEDS ORDERED: LACTATED RINGERS SOLUTION 1,000 ML/1,000 ML INFUS.BAG IV SCH (07:45)
[2018-06-12] MEDS ORDERED: PT OWN MED DRAWER 7, Y5N ONE ×2 (09:24→21:15)
[2018-06-12] MEDS: levETIRAcetam 500 MG/5 ML INJECTION VIAL IVPB SCH ×2 (09:32→21:24)
[2018-06-12] MEDS: HEPARIN NA (PORCINE) 5,000 UNITS/ML 1ML VIAL SQ SCH ×2 (09:33→21:24)
[2018-06-12] MEDS: ASPIRIN 300 MG SUPP.RECT RC SCH (09:33)
--- NOTE | 2018-06-12 09:35 | PN ---
Progress Note, Physician History of Present Illness: Persistent right hemiparesis, but partial aphasia improved. - Current Medication List Current Medications: Active Medications Acetaminophen (Ofirmev Injection -) 1,000 mg IVPB Q4H PRN PRN Reason: FEVER Amlodipine Besylate (Norvasc -) 10 mg PO DAILY [facility] Last Admin: 06/12/18 09:33 Dose: 10 mg Aspirin (Asa -) 300 mg RC DAILY [facility] Last Admin: 06/12/18 09:33 Dose: 300 mg Heparin Sodium (Porcine) (Heparin -) 5,000 unit SQ BID [facility] Last Admin: 06/12/18 09:33 Dose: 5,000 unit Lactated Ringer's (Lactated Ringers Solution) 1,000 ml in 1,000 mls @ 75 mls/ hr IV ASDIR [facility] Last Admin: 06/12/18 07:45 Dose: 75 mls/hr Insulin Aspart (Novolog Vial Sliding Scale -) 1 vial SQ ACHS [facility]; Protocol Last Admin: 06/12/18 06:15 Dose: 6 units Labetalol HCl (Normodyne Injection -) 10 mg IVPUSH Q6H PRN PRN Reason: HYPERTENSION Last Admin: 06/12/18 05:13 Dose: 10 mg Levetiracetam (Keppra Injection -) 500 mg IVPB BID [facility] Last Admin: 06/12/18 09:32 Dose: 500 mg Rosuvastatin Calcium (Crestor -) 40 mg PO HS [facility] Last Admin: 06/11/18 21:42 Dose: 40 mg - Objective Vital Signs: Vital Signs Temperature 99.1 F 06/12/18 08:00 Pulse Rate 93 H 06/12/18 08:00 Respiratory Rate 22 06/12/18 08:00 Blood Pressure 179/98 06/12/18 08:00 O2 Sat by Pulse Oximetry (%) 97 06/12/18 08:00 Constitutional: Yes: No Distress, Calm Neck: Yes: Supple Cardiovascular: Yes: Regular Rate and Rhythm Respiratory: Yes: Regular, On Nasal O2 Gastrointestinal: Yes: Normal Bowel Sounds, Soft Edema: No Neurological: Yes: Aphasia, Weakness Labs: CBC, BMP 06/12/18 05:30 06/12/18 05:30 INR, PTT INR 1.05 (0.82-1.09) 06/09/18 13:40 - ....Imaging Chest X-ray: Report Reviewed (Slight improvement left base) EKG: Report Reviewed (Tele: NSR, no PAF) Problem List - Problems (1) Altered mental state Code(s): R41.82 - ALTERED MENTAL STATUS, UNSPECIFIED Qualifiers: Altered mental status type: transient alteration of awareness Qualified Code(s): R40.4 - Transient alteration of awareness (2) CVA (cerebral vascular accident) Code(s): I63.9 - CEREBRAL INFARCTION, UNSPECIFIED Qualifiers: CVA mechanism: embolism Laterality of affected vessel: left (3) Fever Code(s): R50.9 - FEVER, UNSPECIFIED Qualifiers: Fever type: unspecified Qualified Code(s): R50.9 - Fever, unspecified (4) HTN (hypertension), malignant Code(s): I10 - ESSENTIAL (PRIMARY) HYPERTENSION (5) Seizure as late effect of cerebrovascular accident (CVA) Code(s): I69.398 - OTHER SEQUELAE OF CEREBRAL INFARCTION; R56.9 - UNSPECIFIED CONVULSIONS (6) Hyperlipidemia Code(s): E78.5 - HYPERLIPIDEMIA, UNSPECIFIED Qualifiers: Hyperlipidemia type: pure hypercholesterolemia Qualified Code(s): E78.00 - Pure hypercholesterolemia, unspecified; E78.0 - Pure hypercholesterolemia (7) Microalbuminuria Code(s): R80.9 - PROTEINURIA, UNSPECIFIED Assessment/Plan Echo: Normal LV size and fxn, normal atrial sizes 1. Acute Left MCA stroke 2. Seizure Episode 3. Bilateral Carotid Stenosis 4. HTN urgency 5. Microalbuminuria P:1. Continue telemetry monitoring to r/o PAF, would benefit from long-term arrhythmia monitoring if no atrial arrhythmias detected in house 2. ASA 81 qd, Crestor 40 qd monitor CPK, start Diovan 80 qd 3. S&S eval, PT, neuro input appreciated 4. Vascular input for possible CEA 5. DVT prophylaxis
--- NOTE | 2018-06-12 12:17 | PN ---
Progress Note, Physician History of Present Illness: hemiparesis and aphasia improving able to lift his hand now no discomfort son in room - Current Medication List Current Medications: Active Medications Acetaminophen (Ofirmev Injection -) 1,000 mg IVPB Q4H PRN PRN Reason: FEVER Aspirin (Asa -) 300 mg RC DAILY [facility] Last Admin: 06/12/18 09:33 Dose: 300 mg Heparin Sodium (Porcine) (Heparin -) 5,000 unit SQ BID [facility] Last Admin: 06/12/18 09:33 Dose: 5,000 unit Lactated Ringer's (Lactated Ringers Solution) 1,000 ml in 1,000 mls @ 75 mls/ hr IV ASDIR [facility] Last Admin: 06/12/18 07:45 Dose: 75 mls/hr Insulin Aspart (Novolog Vial Sliding Scale -) 1 vial SQ ACHS [facility]; Protocol Last Admin: 06/12/18 12:00 Dose: Not Given Labetalol HCl (Normodyne Injection -) 10 mg IVPUSH Q6H PRN PRN Reason: HYPERTENSION Last Admin: 06/12/18 05:13 Dose: 10 mg Levetiracetam (Keppra Injection -) 500 mg IVPB BID [facility] Last Admin: 06/12/18 09:32 Dose: 500 mg Rosuvastatin Calcium (Crestor -) 40 mg PO HS [facility] Last Admin: 06/11/18 21:42 Dose: 40 mg Valsartan (Diovan -) 80 mg PO DAILY [facility] - Objective Vital Signs: Vital Signs Temperature 99.1 F 06/12/18 12:00 Pulse Rate 86 06/12/18 12:00 Respiratory Rate 22 06/12/18 12:00 Blood Pressure 177/108 06/12/18 12:00 O2 Sat by Pulse Oximetry (%) 97 06/12/18 08:00 Constitutional: Yes: No Distress, Calm Cardiovascular: Yes: Regular Rate and Rhythm Respiratory: Yes: Regular, CTA Bilaterally Gastrointestinal: Yes: Normal Bowel Sounds, Soft Musculoskeletal: Yes: WNL Extremities: Yes: WNL Neurological: Yes: Alert Psychiatric: Yes: Alert Labs: CBC, BMP 06/12/18 05:30 06/12/18 05:30 INR, PTT INR 1.05 (0.82-1.09) 06/09/18 13:40 Assessment/Plan Problem List - Problems (1) Altered mental state Code(s): R41.82 - ALTERED MENTAL STATUS, UNSPECIFIED Qualifiers: Altered mental status type: transient alteration of awareness Qualified Code(s): R40.4 - Transient alteration of awareness (2) CVA (cerebral vascular accident) Code(s): I63.9 - CEREBRAL INFARCTION, UNSPECIFIED Qualifiers: CVA mechanism: embolism Laterality of affected vessel: left (3) Fever Code(s): R50.9 - FEVER, UNSPECIFIED Qualifiers: Fever type: unspecified Qualified Code(s): R50.9 - Fever, unspecified (4) HTN (hypertension), malignant Code(s): I10 - ESSENTIAL (PRIMARY) HYPERTENSION (5) Seizure as late effect of cerebrovascular accident (CVA) Code(s): I69.398 - OTHER SEQUELAE OF CEREBRAL INFARCTION; R56.9 - UNSPECIFIED CONVULSIONS (6) Hyperlipidemia Code(s): E78.5 - HYPERLIPIDEMIA, UNSPECIFIED Qualifiers: Hyperlipidemia type: pure hypercholesterolemia Qualified Code(s): E78.00 - Pure hypercholesterolemia, unspecified; E78.0 - Pure hypercholesterolemia (7) Microalbuminuria Code(s): R80.9 - PROTEINURIA, UNSPECIFIED Assessment/Plan 1. Acute Left MCA stroke 2. Seizure Episode 3. Bilateral Carotid Stenosis 4. HTN urgency 5. Microalbuminuria will continue to monitor off of abx continue as per icu and cardio rest continue current mgmt patient stable cc time 40 min
--- NOTE | 2018-06-12 12:39 | PN ---
Teaching Attending Note Name of Resident: Lefty Her ATTENDING PHYSICIAN STATEMENT I saw and evaluated the patient. I reviewed the resident's note and discussed the case with the resident. I agree with the resident's findings and plan as documented. SUBJECTIVE: Pt seen and examined in the ICU. Strength improving right extremities. Some word finding. OBJECTIVE: Vital Signs Period Temp Pulse Resp BP Sys/Jaimes Pulse Ox Last 24 Hr 99.0 F-99.8 F 86-100 19-25 172-211/84-109 95-98 Intake & Output 06/09/18 06/10/18 06/11/18 06/12/18 23:59 23:59 23:59 23:59 Intake Total 2300 3675 860 Output Total 350 1100 2300 1200 Balance -350 1200 1375 -340 Weight 90.718 kg 99.382 kg 100.244 kg 100.743 kg Gen: NAD at rest Heart: RRR Lung: decreased breath sounds at the bases Abd: soft, nontender Ext: no edema Neuro: RUE 3/5, RLE 2/5 CBC, BMP 06/12/18 05:30 06/12/18 05:30 Active Medications Acetaminophen (Ofirmev Injection -) 1,000 mg IVPB Q4H PRN PRN Reason: FEVER Aspirin (Asa -) 300 mg RC DAILY [facility] Last Admin: 06/12/18 09:33 Dose: 300 mg Heparin Sodium (Porcine) (Heparin -) 5,000 unit SQ BID [facility] Last Admin: 06/12/18 09:33 Dose: 5,000 unit Lactated Ringer's (Lactated Ringers Solution) 1,000 ml in 1,000 mls @ 75 mls/ hr IV ASDIR [facility] Last Admin: 06/12/18 07:45 Dose: 75 mls/hr Insulin Aspart (Novolog Vial Sliding Scale -) 1 vial SQ ACHS [facility]; Protocol Last Admin: 06/12/18 12:00 Dose: Not Given Labetalol HCl (Normodyne Injection -) 10 mg IVPUSH Q6H PRN PRN Reason: HYPERTENSION Last Admin: 06/12/18 12:20 Dose: 10 mg Levetiracetam (Keppra Injection -) 500 mg IVPB BID [facility] Last Admin: 06/12/18 09:32 Dose: 500 mg Rosuvastatin Calcium (Crestor -) 40 mg PO HS [facility] Last Admin: 06/11/18 21:42 Dose: 40 mg Valsartan (Diovan -) 80 mg PO DAILY [facility] ASSESSMENT AND PLAN: Acute CVA Seizure Episode Rhabdomyolysis Carotid Stenosis HTN Atelectasis - ASA, statin - aspiration precautions - continue antiepileptics - BP control - DVT prophylaxis - can monitor on telemetry
--- NOTE | 2018-06-12 14:00 | PN ---
Physical Exam: SUBJECTIVE: Patient seen and examined in the ICU. states he is feeling better than yesterday and tolerating diet well with no choking or cough. States his RLE and RUE extremity weakness is improving. Pt asked for a bedpan but then says thats not what he needs, seems to be struggling to find the right words in conversation. OBJECTIVE: Vital Signs Period Temp Pulse Resp BP Sys/Jaimes Pulse Ox Last 24 Hr 99.0 F-99.8 F 86-100 19-25 172-211/84-109 95-98 GENERAL: Awake, alert, in no acute distress. HEAD: Normal with no signs of trauma. EYES: Extraocular muscles grossly in tact. Right sided lid lag improving, PERRL , sclera anicteric EARS, NOSE, THROAT: Ears normal, nares patent, oropharynx clear without exudates. Moist mucous membranes. NECK: decreased range of motion, supple without lymphadenopathy, JVD, or masses. LUNGS: Breath sounds equal, clear to auscultation bilaterally. No wheezes, and no crackles. No accessory muscle use. HEART: regular rate and rythm, normal S1 and S2 without murmur, rub or gallop. ABDOMEN: Soft, nontender, not distended, normoactive bowel sounds, no guarding, no rebound, no masses. No hepatomegaly or splenomegaly. MUSCULOSKELETAL: No bony deformities or tenderness. No CVA tenderness. UPPER EXTREMITIES: warm, well-perfused. No cyanosis. No clubbing. Cap refill <2 seconds. No peripheral edema. LOWER EXTREMITIES: warm, well-perfused. No calf tenderness. No peripheral edema. NEUROLOGICAL: CN II-XII appear grossly in tact, Speech is improved, but still searching for some words. 3/5 weakness of RUE, 3/5 weakness RLE PSYCHIATRIC: Good eye contact, slow but appropriate responses SKIN: Warm, dry, normal turgor, no rashes or lesions noted. Laboratory Results - last 24 hr 06/11/18 06/11/18 06/12/18 15:26 21:54 05:30 WBC 11.3 H RBC 4.20 Hgb 13.4 Hct 39.9 MCV 95.1 MCH 31.9 MCHC 33.5 RDW 13.1 Plt Count 165 MPV 8.4 Absolute Neuts (auto) 7.7 Neutrophils % 68.4 Lymphocytes % 18.5 Monocytes % 10.9 H Eosinophils % 1.7 D Basophils % 0.5 Nucleated RBC % 0 Sodium Potassium Chloride Carbon Dioxide Anion Gap BUN Creatinine Creat Clearance w eGFR POC Glucometer 122.11708 113.72813 Random Glucose Calcium Phosphorus Magnesium Total Bilirubin AST ALT Alkaline Phosphatase Total Protein Albumin 06/12/18 06/12/18 05:30 12:02 WBC RBC Hgb Hct MCV MCH MCHC RDW Plt Count MPV Absolute Neuts (auto) Neutrophils % Lymphocytes % Monocytes % Eosinophils % Basophils % Nucleated RBC % Sodium 143 Potassium 4.0 Chloride 107 Carbon Dioxide 29 D Anion Gap 7 L BUN 12 Creatinine 0.8 Creat Clearance w eGFR > 60 POC Glucometer 99.23937 Random Glucose 164 H D Calcium 8.8 Phosphorus 3.2 Magnesium 2.1 Total Bilirubin 0.7 AST 44 H ALT 74 D Alkaline Phosphatase 47 Total Protein 6.0 L Albumin 3.1 L Active Medications Generic Name Dose Route Start Last Admin Trade Name Freq PRN Reason Stop Dose Admin Acetaminophen 1,000 mg 06/09/18 17:50 Ofirmev Injection - IVPB Q4H PRN FEVER Aspirin 300 mg 06/09/18 17:45 06/12/18 09:33 Asa - RC 300 mg DAILY [facility] Administration Heparin Sodium (Porcine) 5,000 unit 06/09/18 22:00 06/12/18 09:33 Heparin - SQ 5,000 unit BID [facility] Administration Lactated Ringer's 1,000 ml in 1,000 mls @ 75 mls/hr 06/12/18 07:45 06/12/18 07:45 Lactated Ringers Solution IV 75 mls/hr ASDIR [facility] Administration Insulin Aspart 1 vial 06/09/18 22:00 06/12/18 12:00 Novolog Vial Sliding Scale - SQ Not Given ACHS [facility] Protocol Labetalol HCl 10 mg 06/10/18 09:41 06/12/18 12:20 Normodyne Injection - IVPUSH 10 mg Q6H PRN Administration HYPERTENSION Levetiracetam 500 mg 06/10/18 11:00 06/12/18 09:32 Keppra Injection - IVPB 500 mg BID [facility] Administration Rosuvastatin Calcium 40 mg 06/10/18 23:00 06/11/18 21:42 Crestor - PO 40 mg HS [facility] Administration Valsartan 80 mg 06/13/18 10:00 Diovan - PO DAILY [facility] ASSESSMENT/PLAN: 77 yo male admitted to the ICU s/p CVA (did NOT receive tPA) with concurrent Rhabdomyolysis(resolved) Neuro -Neurology consult appreciated -Acute CVA Crestor 40mg PO Daily ASA 325mg PO Daily Negative CT noted, MRI suggestive of multiple small cortical infarcts on review Head and Neck CTA as carotid doplar showed stenosis Discussed with Vascular surgery - will follow recommendation of outpatient f/u -Seizure during admission, no seizures in 2 days Keppra 500mg IV BID Cardio -Changed norvasc to Diavan 80mg PO Daily -PRN labatalol 10mg IV to keep Systolic <170, cautiously lower bp as past window for permissive HTN Respiratory -No acute Respiratory issues -Aspiration precautions Elevate head of bed Dysphagia chopped diet with thickened liquids GI -No acute GI issues at this time Renal -Rhabdomyolysis - resolved Fluid resuscitation Continue to monitor CMP and urine output Endocrine -No known history of DM, however BGM monitoring Q4 and insulin SS ordered to keep glucose with a goal of < 180 ID -ID consult appreciated Fever most likely not infectious in nature D/C Zosyn VTE Prophylaxis -Heparin 5000 units SQ BID FEN -Fluids: LR + 20mEq K+ @ 75 cc/hr -Electrolytes: No electrolyte abnormalities at this time. Follow BMP -Nutrition: Dysphagia chopped diet with thickened liquids, medications crushed into applesauce Disposition -Transfer to tele Problem List - Problems (1) CVA (cerebral vascular accident) Code(s): I63.9 - CEREBRAL INFARCTION, UNSPECIFIED Qualifiers: CVA mechanism: embolism Laterality of affected vessel: left (2) Rhabdomyolysis Code(s): M62.82 - RHABDOMYOLYSIS Qualifiers: Rhabdomyolysis type: non-traumatic Qualified Code(s): M62.82 - Rhabdomyolysis (3) HTN (hypertension), malignant Code(s): I10 - ESSENTIAL (PRIMARY) HYPERTENSION (4) Altered mental state Code(s): R41.82 - ALTERED MENTAL STATUS, UNSPECIFIED Qualifiers: Altered mental status type: transient alteration of awareness Qualified Code(s): R40.4 - Transient alteration of awareness (5) Fever Code(s): R50.9 - FEVER, UNSPECIFIED Qualifiers: Fever type: unspecified Qualified Code(s): R50.9 - Fever, unspecified Visit type - Emergency Visit Emergency Visit: Yes ED Registration Date: 06/09/18 Care time: The patient presented to the Emergency Department on the above date and was hospitalized for further evaluation of their emergent condition. - New Patient This patient is new to me today: No - Critical Care Critical Care patient: Yes Total Critical Care Time (in minutes): 35 Critical Care Statement: The care of this patient involved high complexity decision making to prevent further life threatening deterioration of the patient 's condition and/or to evaluate & treat vital organ system(s) failure or risk of failure.
--- NOTE | 2018-06-12 16:37 | PN ---
Progress Note, GRADE RECORDER - Note Progress Note: Nonfluent Aphasia with significant gains. 100% confrontation naming. Speaking with 1-2 word responses. Able to produce phrases with cues to expand and speak i sentences. Frequent omission of Subject. How do you make a cup of coffee? " [place]. Milk. Sugar. Put in microwave. That's it" Comprehension functional. Selected Entries 06/11/18 06/11/18 06/11/18 02:00 06:00 10:00 Breakfast Lunch Temperature 98.5 F 98.3 F 98.9 F 06/11/18 06/11/18 06/11/18 15:00 19:01 22:00 Breakfast Lunch Temperature 99.8 F H 99.2 F 99.8 F H 06/12/18 06/12/18 06/12/18 02:00 06:00 08:00 Breakfast Lunch Temperature 99.5 F 99.4 F 99.1 F 06/12/18 06/12/18 06/12/18 09:30 10:00 12:00 Breakfast 100% Lunch Temperature 99.0 F 99.1 F 06/12/18 06/12/18 06/12/18 14:00 15:00 16:00 Breakfast Lunch 100% Temperature 98.9 F 98.8 F Responsive cough with trial of thin water. Continue chopped diet/nectar thick liquid for now. Excellent candidate for acute rehab
--- NOTE | 2018-06-12 17:28 | PN ---
Progress Note, Physician History of Present Illness: feeling good - Current Medication List Current Medications: Active Medications Acetaminophen (Ofirmev Injection -) 1,000 mg IVPB Q4H PRN PRN Reason: FEVER Aspirin (Ecotrin -) 325 mg PO DAILY [facility] Heparin Sodium (Porcine) (Heparin -) 5,000 unit SQ BID [facility] Last Admin: 06/12/18 09:33 Dose: 5,000 unit Lactated Ringer's (Lactated Ringers Solution) 1,000 ml in 1,000 mls @ 75 mls/ hr IV ASDIR [facility] Last Admin: 06/12/18 07:45 Dose: 75 mls/hr Insulin Aspart (Novolog Vial Sliding Scale -) 1 vial SQ ACHS [facility]; Protocol Last Admin: 06/12/18 12:00 Dose: Not Given Labetalol HCl (Normodyne Injection -) 10 mg IVPUSH Q6H PRN PRN Reason: HYPERTENSION Last Admin: 06/12/18 12:20 Dose: 10 mg Levetiracetam (Keppra Injection -) 500 mg IVPB BID [facility] Last Admin: 06/12/18 09:32 Dose: 500 mg Rosuvastatin Calcium (Crestor -) 40 mg PO HS [facility] Last Admin: 06/11/18 21:42 Dose: 40 mg Valsartan (Diovan -) 80 mg PO DAILY [facility] - Objective Vital Signs: Vital Signs Temperature 98.8 F 06/12/18 16:00 Pulse Rate 100 H 06/12/18 16:00 Respiratory Rate 21 06/12/18 16:00 Blood Pressure 180/92 06/12/18 16:00 O2 Sat by Pulse Oximetry (%) 97 06/12/18 08:00 Constitutional: Yes: No Distress HENT: Yes: Atraumatic Neck: Yes: Supple Cardiovascular: Yes: Regular Rate and Rhythm Respiratory: Yes: CTA Bilaterally Gastrointestinal: Yes: Normal Bowel Sounds Extremities: Yes: WNL Neurological: Yes: Alert, Oriented Labs: CBC, BMP 06/12/18 05:30 06/12/18 05:30 INR, PTT INR 1.05 (0.82-1.09) 06/09/18 13:40 Problem List - Problems (1) Altered mental state Assessment/Plan: pt doing well alert Code(s): R41.82 - ALTERED MENTAL STATUS, UNSPECIFIED Qualifiers: Altered mental status type: transient alteration of awareness Qualified Code(s): R40.4 - Transient alteration of awareness (2) HTN (hypertension), malignant Assessment/Plan: on meds monitor Code(s): I10 - ESSENTIAL (PRIMARY) HYPERTENSION (3) Fever Assessment/Plan: on abx cxs sent...negative Code(s): R50.9 - FEVER, UNSPECIFIED Qualifiers: Fever type: unspecified Qualified Code(s): R50.9 - Fever, unspecified (4) Rhabdomyolysis Code(s): M62.82 - RHABDOMYOLYSIS Qualifiers: Rhabdomyolysis type: non-traumatic Qualified Code(s): M62.82 - Rhabdomyolysis (5) CVA (cerebral vascular accident) Assessment/Plan: need PT snf placement Code(s): I63.9 - CEREBRAL INFARCTION, UNSPECIFIED Qualifiers: CVA mechanism: embolism Laterality of affected vessel: left
--- NOTE | 2018-06-12 17:44 | PN ---
Progress Note, Physician Chief Complaint: stroke with aphasia and right hemiparesis History of Present Illness: improved, without further seizures. Vascular plans on doing endarterectomy but not for three weeks. Patient last seen well on Saturday, 3 days prior to admission when son went away for the weekend, came back to find him on the floor naked and anarthric. Brought in by ems. He is more awake but still not verbal and not moving right side. He has only a history of back pain and complained on Saturday of not feeling well, as if he were getting a cold. - Current Medication List Current Medications: Active Medications Acetaminophen (Ofirmev Injection -) 1,000 mg IVPB Q4H PRN PRN Reason: FEVER Aspirin (Ecotrin -) 325 mg PO DAILY [facility] Heparin Sodium (Porcine) (Heparin -) 5,000 unit SQ BID [facility] Last Admin: 06/12/18 09:33 Dose: 5,000 unit Lactated Ringer's (Lactated Ringers Solution) 1,000 ml in 1,000 mls @ 75 mls/ hr IV ASDIR [facility] Last Admin: 06/12/18 07:45 Dose: 75 mls/hr Insulin Aspart (Novolog Vial Sliding Scale -) 1 vial SQ ACHS [facility]; Protocol Last Admin: 06/12/18 17:00 Dose: Not Given Labetalol HCl (Normodyne Injection -) 10 mg IVPUSH Q6H PRN PRN Reason: HYPERTENSION Last Admin: 06/12/18 12:20 Dose: 10 mg Levetiracetam (Keppra Injection -) 500 mg IVPB BID [facility] Last Admin: 06/12/18 09:32 Dose: 500 mg Rosuvastatin Calcium (Crestor -) 40 mg PO HS [facility] Last Admin: 06/11/18 21:42 Dose: 40 mg Valsartan (Diovan -) 80 mg PO DAILY [facility] - Objective Vital Signs: Vital Signs Temperature 98.8 F 06/12/18 16:00 Pulse Rate 100 H 06/12/18 16:00 Respiratory Rate 21 06/12/18 16:00 Blood Pressure 180/92 06/12/18 16:00 O2 Sat by Pulse Oximetry (%) 97 06/12/18 08:00 Neurological: Yes: Other (awake, alert, halting speech, few words, right 2/5 weakness) Labs: CBC, BMP 06/12/18 05:30 06/12/18 05:30 INR, PTT INR 1.05 (0.82-1.09) 06/09/18 13:40 Problem List - Problems (1) Altered mental state Code(s): R41.82 - ALTERED MENTAL STATUS, UNSPECIFIED Qualifiers: Altered mental status type: transient alteration of awareness Qualified Code(s): R40.4 - Transient alteration of awareness (2) CVA (cerebral vascular accident) Code(s): I63.9 - CEREBRAL INFARCTION, UNSPECIFIED Qualifiers: CVA mechanism: embolism Laterality of affected vessel: left (3) Fever Code(s): R50.9 - FEVER, UNSPECIFIED Qualifiers: Fever type: unspecified Qualified Code(s): R50.9 - Fever, unspecified (4) HTN (hypertension), malignant Code(s): I10 - ESSENTIAL (PRIMARY) HYPERTENSION (5) Rhabdomyolysis Code(s): M62.82 - RHABDOMYOLYSIS Qualifiers: Rhabdomyolysis type: non-traumatic Qualified Code(s): M62.82 - Rhabdomyolysis (6) Seizure as late effect of cerebrovascular accident (CVA) Code(s): I69.398 - OTHER SEQUELAE OF CEREBRAL INFARCTION; R56.9 - UNSPECIFIED CONVULSIONS Assessment/Plan Review of findings on MRI and carotid suggest cerebral embolisms and seizure. He likely had emboli, which might be from carotid, though could also be from heart. Would recommend carotid endarterectomy and aspirin/plavix until this is done. Thanks.
[2018-06-12] MEDS: LACTATED RINGERS SOLUTION 1,000 ML/1,000 ML INFUS.BAG IV SCH (18:37)
[2018-06-12] MEDS ORDERED: LABETALOL HCL 5 MG/1 ML (100MG/20 ML VIAL) IVPUSH PRN (18:39)
[2018-06-12] MEDS ORDERED: ACETAMINOPHEN 1000 MG/100 ML VIAL (NON FORMULARY) IVPB PRN (18:39)
[2018-06-12] MEDS: ROSUVASTATIN CA 20 MG TABLET (FP) PO SCH (21:24)
[2018-06-13] MEDS ORDERED: HEMOQUE TEST 1 EACH EACH ONE (05:40)
[2018-06-13] MEDS: INSULIN SLIDING SCALE (NOVOLOG) 1 VIAL SQ SCH ×4 (06:16→21:43)
[2018-06-13 06:37] LABS: HEMATOCRIT 43.9 % (35.4-49); HEMOGLOBIN 15.1 GM/dL (11.7-16.9); MCH 32.6 pg (25.7-33.7); MCHC 34.4 g/dl (32.0-35.9); MEAN CELL VOLUME 94.9 fl (80-96); MEAN PLT VOLUME 8.2 fl (7.5-11.1); PLATELET COUNT 187 K/MM3 (134-434); RBC 4.63 M/mm3 (4.00-5.60); RDW 13.2 % (11.9-15.9); WHITE BLOOD COUNT 11.6 K/mm3 (4.0-10.0)
[2018-06-13 06:53] LABS: CHLORIDE 107 mmol/L (98-107); POTASSIUM 3.8 mmol/L (3.5-5.1); SODIUM 143 mmol/L (136-145)
[2018-06-13 07:00] LABS: ANION GAP 10 (8-16); BLOOD UREA NITROGEN 14 mg/dL (7-18); CALCIUM 8.8 mg/dL (8.5-10.1); CO2 26 mmol/L (21-32); CREATININE 0.9 mg/dL (0.7-1.3); GLUCOSE,RANDOM 99 mg/dL (74-106); MAGNESIUM 2.4 mg/dL (1.8-2.4); PHOSPHOROUS 3.8 mg/dL (2.5-4.9)
[2018-06-13] MEDS: LACTATED RINGERS SOLUTION 1,000 ML/1,000 ML INFUS.BAG IV SCH (07:45)
[2018-06-13] MEDS: levETIRAcetam 500 MG/5 ML INJECTION VIAL IVPB SCH ×2 (09:34→21:43)
[2018-06-13] MEDS: ASPIRIN COATED 81 MG TABLET.EC PO SCH (09:34)
[2018-06-13] MEDS: HEPARIN NA (PORCINE) 5,000 UNITS/ML 1ML VIAL SQ SCH ×2 (09:34→21:43)
[2018-06-13] MEDS ORDERED: VALSARTAN 80 MG TABLET (UD) PO SCH ×2 (10:00)
[2018-06-13] MEDS ORDERED: ASPIRIN 325 MG ENTERIC COATED TABLET (FP) PO SCH (10:00)
--- NOTE | 2018-06-13 12:03 | PN ---
Progress Note, Physician History of Present Illness: Persistent right hemiparesis, but partial aphasia improved, no further seizures. - Current Medication List Current Medications: Active Medications Acetaminophen (Ofirmev Injection -) 1,000 mg IVPB Q4H PRN PRN Reason: FEVER Aspirin (Ecotrin -) 81 mg PO DAILY [facility] Last Admin: 06/13/18 09:34 Dose: 81 mg Heparin Sodium (Porcine) (Heparin -) 5,000 unit SQ BID [facility] Last Admin: 06/13/18 09:34 Dose: 5,000 unit Insulin Aspart (Novolog Vial Sliding Scale -) 1 vial SQ ACHS [facility]; Protocol Last Admin: 06/13/18 11:37 Dose: 2 units Labetalol HCl (Normodyne Injection -) 10 mg IVPUSH Q6H PRN PRN Reason: HYPERTENSION Last Admin: 06/12/18 18:20 Dose: 10 mg Levetiracetam (Keppra Injection -) 500 mg IVPB BID [facility] Last Admin: 06/13/18 09:34 Dose: 500 mg Rosuvastatin Calcium (Crestor -) 40 mg PO HS [facility] Last Admin: 06/12/18 21:24 Dose: 40 mg Valsartan (Diovan -) 80 mg PO DAILY [facility] Last Admin: 06/13/18 09:34 Dose: 80 mg - Objective Vital Signs: Vital Signs Temperature 99.1 F 06/13/18 10:00 Pulse Rate 101 H 06/13/18 10:00 Respiratory Rate 16 06/13/18 10:00 Blood Pressure 184/93 06/13/18 10:00 O2 Sat by Pulse Oximetry (%) 96 06/13/18 08:00 Constitutional: Yes: No Distress, Calm Neck: Yes: Supple Cardiovascular: Yes: Regular Rate and Rhythm Respiratory: Yes: Regular, CTA Bilaterally Gastrointestinal: Yes: Normal Bowel Sounds, Soft Edema: No Labs: CBC, BMP 06/13/18 05:30 06/13/18 05:30 INR, PTT INR 1.05 (0.82-1.09) 06/09/18 13:40 - ....Imaging EKG: Report Reviewed (Tele: No PAF) Problem List - Problems (1) Altered mental state Code(s): R41.82 - ALTERED MENTAL STATUS, UNSPECIFIED Qualifiers: Altered mental status type: transient alteration of awareness Qualified Code(s): R40.4 - Transient alteration of awareness (2) CVA (cerebral vascular accident) Code(s): I63.9 - CEREBRAL INFARCTION, UNSPECIFIED Qualifiers: CVA mechanism: embolism Laterality of affected vessel: left (3) HTN (hypertension), malignant Code(s): I10 - ESSENTIAL (PRIMARY) HYPERTENSION (4) Seizure as late effect of cerebrovascular accident (CVA) Code(s): I69.398 - OTHER SEQUELAE OF CEREBRAL INFARCTION; R56.9 - UNSPECIFIED CONVULSIONS (5) Hyperlipidemia Code(s): E78.5 - HYPERLIPIDEMIA, UNSPECIFIED Qualifiers: Hyperlipidemia type: pure hypercholesterolemia Qualified Code(s): E78.00 - Pure hypercholesterolemia, unspecified; E78.0 - Pure hypercholesterolemia (6) Microalbuminuria Code(s): R80.9 - PROTEINURIA, UNSPECIFIED Assessment/Plan Echo: Normal LV size and fxn, normal atrial sizes 1. Acute Left MCA stroke 2. Seizure Episode 3. Bilateral Carotid Stenosis 4. HTN urgency 5. Microalbuminuria P:1. Continue telemetry monitoring to r/o PAF, would benefit from long-term arrhythmia monitoring if no atrial arrhythmias detected in house 2. ASA 81 qd, add Plavix 75 qd per neuro, Crestor 40 qd monitor CPK, increase Diovan 160 qd 3. S&S eval, PT, neuro input appreciated 4. Vascular input appreciated, would wait 6 weeks prior to carotid intervention 5. DVT prophylaxis
--- NOTE | 2018-06-13 12:24 | PN ---
Teaching Attending Note Name of Resident: Lefty Her ATTENDING PHYSICIAN STATEMENT I saw and evaluated the patient. I reviewed the resident's note and discussed the case with the resident. I agree with the resident's findings and plan as documented. SUBJECTIVE: Patient seen and examined in the ICU. Feels that his strength is overall improving. Some word finding. No CP or SOB. OBJECTIVE: Intake & Output 06/10/18 06/11/18 06/12/18 06/13/18 23:59 23:59 23:59 23:59 Intake Total 2300 3675 2800 1340 Output Total 1100 2300 5100 720 Balance 1200 1375 -2300 620 Weight 219 lb 1.6 oz 221 lb 222 lb 1.6 oz 215 lb 6.4 oz Last Vital Signs Temp Pulse Resp BP Pulse Ox 99.1 F 97 H 23 164/87 96 06/13/18 12:00 06/13/18 12:00 06/13/18 12:00 06/13/18 12:00 06/13/18 08:00 Active Medications Acetaminophen (Ofirmev Injection -) 1,000 mg IVPB Q4H PRN PRN Reason: FEVER Aspirin (Ecotrin -) 81 mg PO DAILY [facility] Last Admin: 06/13/18 09:34 Dose: 81 mg Clopidogrel Bisulfate (Plavix -) 75 mg PO DAILY [facility] Heparin Sodium (Porcine) (Heparin -) 5,000 unit SQ BID [facility] Last Admin: 06/13/18 09:34 Dose: 5,000 unit Insulin Aspart (Novolog Vial Sliding Scale -) 1 vial SQ ACHS [facility]; Protocol Last Admin: 06/13/18 11:37 Dose: 2 units Labetalol HCl (Normodyne Injection -) 10 mg IVPUSH Q6H PRN PRN Reason: HYPERTENSION Last Admin: 06/12/18 18:20 Dose: 10 mg Levetiracetam (Keppra Injection -) 500 mg IVPB BID [facility] Last Admin: 06/13/18 09:34 Dose: 500 mg Rosuvastatin Calcium (Crestor -) 40 mg PO HS [facility] Last Admin: 06/12/18 21:24 Dose: 40 mg Valsartan (Diovan -) 80 mg PO ONCE ONE Stop: 06/13/18 13:01 Valsartan (Diovan -) 160 mg PO DAILY [facility] Gen: NAD at rest Heart: RRR Lung: decreased breath sounds at the bases Abd: soft, nontender Ext: no edema Neuro: RUE 4/5, RLE 3/5 Laboratory Results - last 24 hr 06/12/18 06/12/18 06/12/18 05:49 17:13 21:36 WBC RBC Hgb Hct MCV MCH MCHC RDW Plt Count MPV Sodium Potassium Chloride Carbon Dioxide Anion Gap BUN Creatinine Creat Clearance w eGFR POC Glucometer 261.17912 95.70949 114.66834 Random Glucose Calcium Phosphorus Magnesium 06/13/18 06/13/18 06/13/18 05:30 05:30 05:42 WBC 11.6 H RBC 4.63 Hgb 15.1 Hct 43.9 MCV 94.9 MCH 32.6 MCHC 34.4 RDW 13.2 Plt Count 187 MPV 8.2 Sodium 143 Potassium 3.8 Chloride 107 Carbon Dioxide 26 Anion Gap 10 BUN 14 Creatinine 0.9 Creat Clearance w eGFR > 60 POC Glucometer 108.25710 Random Glucose 99 D Calcium 8.8 Phosphorus 3.8 Magnesium 2.4 ASSESSMENT AND PLAN: Acute CVA Seizure Episode Rhabdomyolysis Carotid Stenosis HTN Atelectasis - ASA, statin - Aspiration precautions - Antiepileptics - BP control - DVT prophylaxis - Cardiac Telemetry monitoring Dr Lepe Critical care time spent in reviewing chart, evaluating patient and formulating plan - 36 minutes.
[2018-06-13] MEDS ORDERED: VALSARTAN 80 MG TABLET (UD) PO ONE (13:00)
[2018-06-13] MEDS: CLOPIDOGREL BISULFATE 75 MG TABLET (FP) PO SCH (13:09)
--- NOTE | 2018-06-13 14:02 | PN ---
Progress Note, Physician History of Present Illness: hemiparesis improving aphasia improving more awake and alert - Current Medication List Current Medications: Active Medications Acetaminophen (Ofirmev Injection -) 1,000 mg IVPB Q4H PRN PRN Reason: FEVER Aspirin (Ecotrin -) 81 mg PO DAILY [facility] Last Admin: 06/13/18 09:34 Dose: 81 mg Clopidogrel Bisulfate (Plavix -) 75 mg PO DAILY [facility] Last Admin: 06/13/18 13:09 Dose: 75 mg Heparin Sodium (Porcine) (Heparin -) 5,000 unit SQ BID [facility] Last Admin: 06/13/18 09:34 Dose: 5,000 unit Insulin Aspart (Novolog Vial Sliding Scale -) 1 vial SQ ACHS [facility]; Protocol Last Admin: 06/13/18 11:37 Dose: 2 units Labetalol HCl (Normodyne Injection -) 10 mg IVPUSH Q6H PRN PRN Reason: HYPERTENSION Last Admin: 06/12/18 18:20 Dose: 10 mg Levetiracetam (Keppra Injection -) 500 mg IVPB BID [facility] Last Admin: 06/13/18 09:34 Dose: 500 mg Rosuvastatin Calcium (Crestor -) 40 mg PO HS [facility] Last Admin: 06/12/18 21:24 Dose: 40 mg Valsartan (Diovan -) 160 mg PO DAILY [facility] - Objective Vital Signs: Vital Signs Temperature 99.1 F 06/13/18 12:00 Pulse Rate 97 H 06/13/18 12:00 Respiratory Rate 23 06/13/18 12:00 Blood Pressure 164/87 06/13/18 12:00 O2 Sat by Pulse Oximetry (%) 96 06/13/18 08:00 Constitutional: Yes: No Distress, Calm Cardiovascular: Yes: Regular Rate and Rhythm Respiratory: Yes: Regular, CTA Bilaterally Gastrointestinal: Yes: Normal Bowel Sounds, Soft Musculoskeletal: Yes: WNL Extremities: Yes: WNL Neurological: Yes: Alert, Oriented Psychiatric: Yes: Alert Labs: CBC, BMP 06/13/18 05:30 06/13/18 05:30 INR, PTT INR 1.05 (0.82-1.09) 06/09/18 13:40 Assessment/Plan Problem List - Problems (1) Altered mental state Code(s): R41.82 - ALTERED MENTAL STATUS, UNSPECIFIED Qualifiers: Altered mental status type: transient alteration of awareness Qualified Code(s): R40.4 - Transient alteration of awareness (2) CVA (cerebral vascular accident) Code(s): I63.9 - CEREBRAL INFARCTION, UNSPECIFIED Qualifiers: CVA mechanism: embolism Laterality of affected vessel: left (3) Fever Code(s): R50.9 - FEVER, UNSPECIFIED Qualifiers: Fever type: unspecified Qualified Code(s): R50.9 - Fever, unspecified (4) HTN (hypertension), malignant Code(s): I10 - ESSENTIAL (PRIMARY) HYPERTENSION (5) Seizure as late effect of cerebrovascular accident (CVA) Code(s): I69.398 - OTHER SEQUELAE OF CEREBRAL INFARCTION; R56.9 - UNSPECIFIED CONVULSIONS (6) Hyperlipidemia Code(s): E78.5 - HYPERLIPIDEMIA, UNSPECIFIED Qualifiers: Hyperlipidemia type: pure hypercholesterolemia Qualified Code(s): E78.00 - Pure hypercholesterolemia, unspecified; E78.0 - Pure hypercholesterolemia (7) Microalbuminuria Code(s): R80.9 - PROTEINURIA, UNSPECIFIED Assessment/Plan 1. Acute Left MCA stroke 2. Seizure Episode 3. Bilateral Carotid Stenosis 4. HTN urgency 5. Microalbuminuria will continue to monitor off of abx continue as per icu and cardio rest continue current mgmt patient stable cc time 40 min
--- NOTE | 2018-06-13 14:57 | PN ---
Progress Note, [employer] - Note Progress Note: Sleepy today, not sleeping well at night. Still with Aphasia with delayed verbalizations. However, pt now completing full sentences, with improved syntax intermittently.Functional communication continues to improve. Selected Entries 06/12/18 06/12/18 06/12/18 02:00 06:00 08:00 Breakfast Lunch Temperature 99.5 F 99.4 F 99.1 F 06/12/18 06/12/18 06/12/18 09:30 10:00 12:00 Breakfast 100% Lunch Temperature 99.0 F 99.1 F 06/12/18 06/12/18 06/12/18 14:00 15:00 16:00 Breakfast Lunch 100% Temperature 98.9 F 98.8 F 06/12/18 06/12/18 06/13/18 18:00 22:00 02:00 Breakfast Lunch Temperature 98.7 F 98.9 F 98.9 F 06/13/18 06/13/18 06/13/18 06:00 08:00 10:00 Breakfast Lunch Temperature 99.1 F 99.0 F 99.1 F 06/13/18 06/13/18 12:00 14:00 Breakfast Lunch Temperature 99.1 F 99.0 F Laboratory Tests 06/12/18 06/13/18 05:30 05:30 WBC 11.3 H 11.6 H Excellent rehab candidate.
--- NOTE | 2018-06-13 15:29 | PN ---
Physical Exam: SUBJECTIVE: Patient seen and examined in the ICU. His speech is noted to be better than yesterday. He states he feels better than yesterday and has increased strength. Awaiting transfer to telemetry. OBJECTIVE: Vital Signs Period Temp Pulse Resp BP Sys/Jaimes Pulse Ox Last 24 Hr 98.7 F-99.1 F 78-104 16-27 159-189/85-103 96-99 GENERAL: Awake, alert, in no acute distress. HEAD: Normal with no signs of trauma. EYES: Extraocular muscles grossly in tact. Right sided lid lag improving, PERRL , sclera anicteric EARS, NOSE, THROAT: Ears normal, nares patent, oropharynx clear without exudates. Moist mucous membranes. NECK: decreased range of motion, supple without lymphadenopathy, JVD, or masses. LUNGS: Breath sounds equal, clear to auscultation bilaterally. No wheezes, and no crackles. No accessory muscle use. HEART: regular rate and rythm, normal S1 and S2 without murmur, rub or gallop. ABDOMEN: Soft, nontender, not distended, normoactive bowel sounds, no guarding, no rebound, no masses. No hepatomegaly or splenomegaly. MUSCULOSKELETAL: No bony deformities or tenderness. No CVA tenderness. UPPER EXTREMITIES: warm, well-perfused. No cyanosis. No clubbing. No peripheral edema. LOWER EXTREMITIES: warm, well-perfused. No calf tenderness. No peripheral edema. NEUROLOGICAL: CN II-XII appear grossly in tact, Speech is improving. 4/5 weakness of RUE, 4/5 weakness RLE PSYCHIATRIC: Good eye contact, slow but appropriate responses SKIN: Warm, dry, normal turgor, no rashes or lesions noted. Laboratory Results - last 24 hr 06/12/18 06/12/18 06/12/18 05:49 17:13 21:36 WBC RBC Hgb Hct MCV MCH MCHC RDW Plt Count MPV Sodium Potassium Chloride Carbon Dioxide Anion Gap BUN Creatinine Creat Clearance w eGFR POC Glucometer [id number] 95.96192 114.75820 Random Glucose Calcium Phosphorus Magnesium 06/13/18 06/13/18 06/13/18 05:30 05:30 05:42 WBC 11.6 H RBC 4.63 Hgb 15.1 Hct 43.9 MCV 94.9 MCH 32.6 MCHC 34.4 RDW 13.2 Plt Count 187 MPV 8.2 Sodium 143 Potassium 3.8 Chloride 107 Carbon Dioxide 26 Anion Gap 10 BUN 14 Creatinine 0.9 Creat Clearance w eGFR > 60 POC Glucometer [phone] Random Glucose 99 D Calcium 8.8 Phosphorus 3.8 Magnesium 2.4 Active Medications Generic Name Dose Route Start Last Admin Trade Name Freq PRN Reason Stop Dose Admin Acetaminophen 1,000 mg 06/12/18 18:39 Ofirmev Injection - IVPB Q4H PRN FEVER Aspirin 81 mg 06/13/18 10:00 06/13/18 09:34 Ecotrin - PO 81 mg DAILY FLIP Administration Clopidogrel Bisulfate 75 mg 06/13/18 12:30 06/13/18 13:09 Plavix - PO 75 mg DAILY FLIP Administration Heparin Sodium (Porcine) 5,000 unit 06/12/18 22:00 06/13/18 09:34 Heparin - SQ 5,000 unit BID FLIP Administration Insulin Aspart 1 vial 06/12/18 22:00 06/13/18 11:37 Novolog Vial Sliding Scale - SQ 2 units ACHS FLIP Administration Protocol Labetalol HCl 10 mg 06/12/18 18:39 06/12/18 18:20 Normodyne Injection - IVPUSH 10 mg Q6H PRN Administration HYPERTENSION Levetiracetam 500 mg 06/12/18 22:00 06/13/18 09:34 Keppra Injection - IVPB 500 mg BID FLIP Administration Rosuvastatin Calcium 40 mg 06/12/18 22:00 06/12/18 21:24 Crestor - PO 40 mg HS FLIP Administration Valsartan 160 mg 06/13/18 12:15 Diovan - PO DAILY FLIP ASSESSMENT/PLAN: 77 yo male admitted to the ICU s/p CVA (did NOT receive tPA) with concurrent Rhabdomyolysis(resolved) Neuro -Neurology consult appreciated -Acute CVA Crestor 40mg PO Daily ASA 325mg PO Daily Negative CT noted, MRI suggestive of multiple small cortical infarcts on review Head and Neck CTA as carotid doplar showed stenosis Discussed with Vascular surgery - will follow recommendation of outpatient f/u -Seizure during admission, no seizures since Keppra 500mg IV BID Cardio -Diavan 80mg PO Daily -PRN labatalol 10mg IV to keep Systolic <160, cautiously lower bp as past window for permissive HTN Respiratory -No acute Respiratory issues -Aspiration precautions Elevate head of bed Dysphagia chopped diet with thickened liquids GI -No acute GI issues at this time Renal -Rhabdomyolysis - resolved Fluid resuscitation Continue to monitor CMP and urine output Endocrine -No known history of DM, however BGM monitoring Q4 and insulin SS ordered to keep glucose with a goal of < 180 ID -ID consult appreciated Fever most likely not infectious in nature D/C Zosyn VTE Prophylaxis -Heparin 5000 units SQ BID FEN -Fluids: No fluids as tolerating diet well -Electrolytes: No electrolyte abnormalities at this time. Follow BMP -Nutrition: Dysphagia chopped diet with thickened liquids, medications crushed into applesauce Disposition -Transfer to tele Problem List - Problems (1) CVA (cerebral vascular accident) Code(s): I63.9 - CEREBRAL INFARCTION, UNSPECIFIED Qualifiers: CVA mechanism: embolism Laterality of affected vessel: left (2) Rhabdomyolysis Code(s): M62.82 - RHABDOMYOLYSIS Qualifiers: Rhabdomyolysis type: non-traumatic Qualified Code(s): M62.82 - Rhabdomyolysis (3) HTN (hypertension), malignant Code(s): I10 - ESSENTIAL (PRIMARY) HYPERTENSION (4) Altered mental state Code(s): R41.82 - ALTERED MENTAL STATUS, UNSPECIFIED Qualifiers: Altered mental status type: transient alteration of awareness Qualified Code(s): R40.4 - Transient alteration of awareness (5) Fever Code(s): R50.9 - FEVER, UNSPECIFIED Qualifiers: Fever type: unspecified Qualified Code(s): R50.9 - Fever, unspecified Visit type - Emergency Visit Emergency Visit: Yes ED Registration Date: 06/09/18 Care time: The patient presented to the Emergency Department on the above date and was hospitalized for further evaluation of their emergent condition. - New Patient This patient is new to me today: No - Critical Care Critical Care patient: Yes Total Critical Care Time (in minutes): 35 Critical Care Statement: The care of this patient involved high complexity decision making to prevent further life threatening deterioration of the patient 's condition and/or to evaluate & treat vital organ system(s) failure or risk of failure.
--- NOTE | 2018-06-13 15:45 | PN ---
Progress Note, Physician History of Present Illness: feeling good - Current Medication List Current Medications: Active Medications Acetaminophen (Ofirmev Injection -) 1,000 mg IVPB Q4H PRN PRN Reason: FEVER Aspirin (Ecotrin -) 81 mg PO DAILY [facility] Last Admin: 06/13/18 09:34 Dose: 81 mg Clopidogrel Bisulfate (Plavix -) 75 mg PO DAILY [facility] Last Admin: 06/13/18 13:09 Dose: 75 mg Heparin Sodium (Porcine) (Heparin -) 5,000 unit SQ BID [facility] Last Admin: 06/13/18 09:34 Dose: 5,000 unit Insulin Aspart (Novolog Vial Sliding Scale -) 1 vial SQ ACHS [facility]; Protocol Last Admin: 06/13/18 11:37 Dose: 2 units Labetalol HCl (Normodyne Injection -) 10 mg IVPUSH Q6H PRN PRN Reason: HYPERTENSION Last Admin: 06/12/18 18:20 Dose: 10 mg Levetiracetam (Keppra Injection -) 500 mg IVPB BID [facility] Last Admin: 06/13/18 09:34 Dose: 500 mg Rosuvastatin Calcium (Crestor -) 40 mg PO HS [facility] Last Admin: 06/12/18 21:24 Dose: 40 mg Valsartan (Diovan -) 160 mg PO DAILY [facility] - Objective Vital Signs: Vital Signs Temperature 99.0 F 06/13/18 14:00 Pulse Rate 84 06/13/18 14:00 Respiratory Rate 21 06/13/18 14:00 Blood Pressure 160/97 06/13/18 14:00 O2 Sat by Pulse Oximetry (%) 96 06/13/18 08:00 Constitutional: Yes: No Distress HENT: Yes: Atraumatic Neck: Yes: Supple Cardiovascular: Yes: Regular Rate and Rhythm Respiratory: Yes: CTA Bilaterally Gastrointestinal: Yes: Normal Bowel Sounds Peripheral Pulses WNL: Yes Neurological: Yes: WNL, Alert, Other (weak R upper and R lower extremity...4/5) Labs: CBC, BMP 06/13/18 05:30 06/13/18 05:30 INR, PTT INR 1.05 (0.82-1.09) 06/09/18 13:40 Problem List - Problems (1) Altered mental state Assessment/Plan: pt doing well alert and oriented Code(s): R41.82 - ALTERED MENTAL STATUS, UNSPECIFIED Qualifiers: Altered mental status type: transient alteration of awareness Qualified Code(s): R40.4 - Transient alteration of awareness (2) HTN (hypertension), malignant Assessment/Plan: on meds monitor Code(s): I10 - ESSENTIAL (PRIMARY) HYPERTENSION (3) Fever Assessment/Plan: on abx cxs sent Code(s): R50.9 - FEVER, UNSPECIFIED Qualifiers: Fever type: unspecified Qualified Code(s): R50.9 - Fever, unspecified (4) Rhabdomyolysis Code(s): M62.82 - RHABDOMYOLYSIS Qualifiers: Rhabdomyolysis type: non-traumatic Qualified Code(s): M62.82 - Rhabdomyolysis (5) CVA (cerebral vascular accident) Assessment/Plan: need PT snf placement Code(s): I63.9 - CEREBRAL INFARCTION, UNSPECIFIED Qualifiers: CVA mechanism: embolism Laterality of affected vessel: left
[2018-06-13] MEDS: ROSUVASTATIN CA 20 MG TABLET (FP) PO SCH (21:43)
[2018-06-14] MEDS: INSULIN SLIDING SCALE (NOVOLOG) 1 VIAL SQ SCH ×4 (07:03→22:02)
[2018-06-14] MEDS: VALSARTAN 160 MG TABLET (UD) PO SCH (09:39)
[2018-06-14] MEDS: ASPIRIN COATED 81 MG TABLET.EC PO SCH (09:39)
[2018-06-14] MEDS: CLOPIDOGREL BISULFATE 75 MG TABLET (FP) PO SCH (09:39)
[2018-06-14] MEDS: HEPARIN NA (PORCINE) 5,000 UNITS/ML 1ML VIAL SQ SCH ×2 (09:41→22:01)
[2018-06-14] MEDS: levETIRAcetam 500 MG/5 ML INJECTION VIAL IVPB SCH ×2 (09:49→22:01)
--- NOTE | 2018-06-14 11:42 | PN ---
Progress Note, Physician Chief Complaint: Events noted Not in distress History of Present Illness: Patient was seen and examined. Awake and alert. Chart was reviewed Denies chest pain, SOB or palpitations - Current Medication List Current Medications: Active Medications Acetaminophen (Ofirmev Injection -) 1,000 mg IVPB Q4H PRN PRN Reason: FEVER Aspirin (Ecotrin -) 81 mg PO DAILY [facility] Last Admin: 06/14/18 09:39 Dose: 81 mg Clopidogrel Bisulfate (Plavix -) 75 mg PO DAILY [facility] Last Admin: 06/14/18 09:39 Dose: 75 mg Heparin Sodium (Porcine) (Heparin -) 5,000 unit SQ BID [facility] Last Admin: 06/14/18 09:41 Dose: 5,000 unit Insulin Aspart (Novolog Vial Sliding Scale -) 1 vial SQ [facility]; Protocol Last Admin: 06/14/18 07:03 Dose: Not Given Labetalol HCl (Normodyne Injection -) 10 mg IVPUSH Q6H PRN PRN Reason: HYPERTENSION Last Admin: 06/12/18 18:20 Dose: 10 mg Levetiracetam (Keppra Injection -) 500 mg IVPB BID [facility] Last Admin: 06/14/18 09:49 Dose: 500 mg Rosuvastatin Calcium (Crestor -) 40 mg PO HS [facility] Last Admin: 06/13/18 21:43 Dose: 40 mg Valsartan (Diovan -) 160 mg PO DAILY [facility] Last Admin: 06/14/18 09:39 Dose: 160 mg - Objective Vital Signs: Vital Signs Temperature 98.7 F 06/14/18 06:00 Pulse Rate 98 H 06/14/18 06:00 Respiratory Rate 18 06/14/18 06:00 Blood Pressure 137/90 06/14/18 06:00 O2 Sat by Pulse Oximetry (%) 96 06/14/18 07:00 Eyes: Yes: PERRL HENT: Yes: Atraumatic Neck: Yes: Supple Cardiovascular: Yes: Regular Rate and Rhythm, S1, S2. No: Murmur Respiratory: Yes: CTA Bilaterally Gastrointestinal: Yes: Normal Bowel Sounds, Soft. No: Tenderness Edema: No Additional Findings/Remarks: - Review of Systems Constitutional: denies: Chills. denies: Fever Cardiovascular: denies: Chest Pain, Palpitations, Shortness of Breath Respiratory: denies: Cough, Hemoptysis, Orthopnea, PND, SOB, SOB on Exertion Gastrointestinal: denies: Bloating, Constipation. denies: Abdominal Pain, Diarrhea, Melena, Nausea, Rectal Bleeding, Vomiting Genitourinary: denies: Hematuria Musculoskeletal: denies: Joint Pain Neurological: denies: Dizziness, Headache, Seizure, Syncope, Weakness Labs: CBC, BMP 06/13/18 05:30 06/13/18 05:30 Problem List - Problems (1) CVA (cerebral vascular accident) Code(s): I63.9 - CEREBRAL INFARCTION, UNSPECIFIED Qualifiers: CVA mechanism: embolism Laterality of affected vessel: left (2) HTN (hypertension), malignant Code(s): I10 - ESSENTIAL (PRIMARY) HYPERTENSION (3) Hyperlipidemia Code(s): E78.5 - HYPERLIPIDEMIA, UNSPECIFIED Qualifiers: Hyperlipidemia type: pure hypercholesterolemia Qualified Code(s): E78.00 - Pure hypercholesterolemia, unspecified; E78.0 - Pure hypercholesterolemia (4) Microalbuminuria Code(s): R80.9 - PROTEINURIA, UNSPECIFIED (5) Seizure as late effect of cerebrovascular accident (CVA) Code(s): I69.398 - OTHER SEQUELAE OF CEREBRAL INFARCTION; R56.9 - UNSPECIFIED CONVULSIONS Assessment/Plan 1. Acute Left MCA stroke 2. Seizure 3. Bilateral Carotid Stenosis 4. HTN 5. Microalbuminuria PLAN: 1. Continue telemetry monitoring to rule out PAF and would benefit from long- term arrhythmia monitoring if no atrial arrhythmias detected in the hospital 2. ASA 81 qd, Plavix 75 qd per neurology and continue Crestor 40 qd and Diovan 160 qd 3. PT 4.Further cardiac evaluation as outpatient 5. DVT prophylaxis Further plans are to follow Hiram Eason MD
--- NOTE | 2018-06-14 14:03 | PN ---
Progress Note, Physician - Current Medication List Current Medications: Active Medications Acetaminophen (Ofirmev Injection -) 1,000 mg IVPB Q4H PRN PRN Reason: FEVER Aspirin (Ecotrin -) 81 mg PO DAILY [facility] Last Admin: 06/14/18 09:39 Dose: 81 mg Clopidogrel Bisulfate (Plavix -) 75 mg PO DAILY [facility] Last Admin: 06/14/18 09:39 Dose: 75 mg Heparin Sodium (Porcine) (Heparin -) 5,000 unit SQ BID [facility] Last Admin: 06/14/18 09:41 Dose: 5,000 unit Insulin Aspart (Novolog Vial Sliding Scale -) 1 vial SQ ACHS [facility]; Protocol Last Admin: 06/14/18 12:22 Dose: Not Given Labetalol HCl (Normodyne Injection -) 10 mg IVPUSH Q6H PRN PRN Reason: HYPERTENSION Last Admin: 06/12/18 18:20 Dose: 10 mg Levetiracetam (Keppra Injection -) 500 mg IVPB BID [facility] Last Admin: 06/14/18 09:49 Dose: 500 mg Rosuvastatin Calcium (Crestor -) 40 mg PO HS [facility] Last Admin: 06/13/18 21:43 Dose: 40 mg Valsartan (Diovan -) 160 mg PO DAILY [facility] Last Admin: 06/14/18 09:39 Dose: 160 mg - Objective Vital Signs: Vital Signs Temperature 98.7 F 06/14/18 06:00 Pulse Rate 98 H 06/14/18 06:00 Respiratory Rate 18 06/14/18 06:00 Blood Pressure 137/90 06/14/18 06:00 O2 Sat by Pulse Oximetry (%) 96 06/14/18 07:00 Labs: CBC, BMP 06/13/18 05:30 06/13/18 05:30 INR, PTT INR 1.05 (0.82-1.09) 06/09/18 13:40
--- NOTE | 2018-06-14 17:00 | PN ---
Progress Note, Physician History of Present Illness: feeling good - Current Medication List Current Medications: Active Medications Acetaminophen (Ofirmev Injection -) 1,000 mg IVPB Q4H PRN PRN Reason: FEVER Aspirin (Ecotrin -) 81 mg PO DAILY [facility] Last Admin: 06/14/18 09:39 Dose: 81 mg Clopidogrel Bisulfate (Plavix -) 75 mg PO DAILY [facility] Last Admin: 06/14/18 09:39 Dose: 75 mg Heparin Sodium (Porcine) (Heparin -) 5,000 unit SQ BID [facility] Last Admin: 06/14/18 09:41 Dose: 5,000 unit Insulin Aspart (Novolog Vial Sliding Scale -) 1 vial SQ ACHS [facility]; Protocol Last Admin: 06/14/18 12:22 Dose: Not Given Labetalol HCl (Normodyne Injection -) 10 mg IVPUSH Q6H PRN PRN Reason: HYPERTENSION Last Admin: 06/12/18 18:20 Dose: 10 mg Levetiracetam (Keppra Injection -) 500 mg IVPB BID [facility] Last Admin: 06/14/18 09:49 Dose: 500 mg Rosuvastatin Calcium (Crestor -) 40 mg PO HS [facility] Last Admin: 06/13/18 21:43 Dose: 40 mg Valsartan (Diovan -) 160 mg PO DAILY [facility] Last Admin: 06/14/18 09:39 Dose: 160 mg - Objective Vital Signs: Vital Signs Temperature 98.5 F 06/14/18 13:55 Pulse Rate 119 H 06/14/18 13:55 Respiratory Rate 20 06/14/18 13:55 Blood Pressure 116/79 06/14/18 13:55 O2 Sat by Pulse Oximetry (%) 96 06/14/18 07:00 Constitutional: Yes: No Distress HENT: Yes: Atraumatic Neck: Yes: Supple Cardiovascular: Yes: Regular Rate and Rhythm Respiratory: Yes: CTA Bilaterally Gastrointestinal: Yes: Normal Bowel Sounds Extremities: Yes: WNL Edema: No Peripheral Pulses WNL: Yes Neurological: Yes: Alert, Oriented, Weakness (R upper and r lower extremeties) Labs: CBC, BMP 06/13/18 05:30 06/13/18 05:30 INR, PTT INR 1.05 (0.82-1.09) 06/09/18 13:40 Problem List - Problems (1) Altered mental state Assessment/Plan: pt doing well alert and oriented Code(s): R41.82 - ALTERED MENTAL STATUS, UNSPECIFIED Qualifiers: Altered mental status type: transient alteration of awareness Qualified Code(s): R40.4 - Transient alteration of awareness (2) HTN (hypertension), malignant Assessment/Plan: on meds monitor Code(s): I10 - ESSENTIAL (PRIMARY) HYPERTENSION (3) Fever Assessment/Plan: resolve Code(s): R50.9 - FEVER, UNSPECIFIED Qualifiers: Fever type: unspecified Qualified Code(s): R50.9 - Fever, unspecified (4) Rhabdomyolysis Code(s): M62.82 - RHABDOMYOLYSIS Qualifiers: Rhabdomyolysis type: non-traumatic Qualified Code(s): M62.82 - Rhabdomyolysis (5) CVA (cerebral vascular accident) Assessment/Plan: need PT snf placement Code(s): I63.9 - CEREBRAL INFARCTION, UNSPECIFIED Qualifiers: CVA mechanism: embolism Laterality of affected vessel: left
[2018-06-14] MEDS ORDERED: ACETAMINOPHEN 325 MG TABLET (FP) PO PRN (20:18)
[2018-06-14] MEDS: ROSUVASTATIN CA 20 MG TABLET (FP) PO SCH (22:01)
[2018-06-15] MEDS: INSULIN SLIDING SCALE (NOVOLOG) 1 VIAL SQ SCH ×2 (06:10→11:14)
[2018-06-15 08:12] LABS: BASO % 0.3 % (0-2.0); EOS % 3.6 % (0-4.5); HEMATOCRIT 43.8 % (35.4-49); HEMOGLOBIN 14.9 GM/dL (11.7-16.9); LYMPH % 19.1 % (8-40); MCH 32.6 pg (25.7-33.7); MEAN CELL VOLUME 95.9 fl (80-96); MEAN PLT VOLUME 8.2 fl (7.5-11.1); MONO % 10.5 % (3.8-10.2); NEUT % 66.5 % (42.8-82.8); PLATELET COUNT 219 K/MM3 (134-434); RBC 4.57 M/mm3 (4.00-5.60); WHITE BLOOD COUNT 10.3 K/mm3 (4.0-10.0)
[2018-06-15 08:51] LABS: ALBUMIN 3.2 g/dl (3.4-5.0); ALK PHOS 53 U/L (45-117); ANION GAP 9 (8-16); BILIRUBIN,TOTAL 0.4 mg/dL (0.2-1.0); BLOOD UREA NITROGEN 22 mg/dL (7-18); CALCIUM 8.9 mg/dL (8.5-10.1); CHLORIDE 108 mmol/L (98-107); CO2 26 mmol/L (21-32); GLUCOSE,RANDOM 94 mg/dL (74-106); POTASSIUM 4.3 mmol/L (3.5-5.1); SGOT/AST 38 U/L (15-37); SGPT/ALT 80 U/L (12-78); SODIUM 143 mmol/L (136-145); TOT PROT 6.4 g/dl (6.4-8.2)
--- NOTE | 2018-06-15 09:26 | PN ---
Progress Note, Physician History of Present Illness: looking much better right side strength has improved patient able to walk wiht help speech has improved - Current Medication List Current Medications: Active Medications Acetaminophen (Tylenol -) 650 mg PO Q6H PRN PRN Reason: FEVER Last Admin: 06/14/18 22:01 Dose: 650 mg Aspirin (Ecotrin -) 81 mg PO DAILY [facility] Last Admin: 06/14/18 09:39 Dose: 81 mg Clopidogrel Bisulfate (Plavix -) 75 mg PO DAILY [facility] Last Admin: 06/14/18 09:39 Dose: 75 mg Heparin Sodium (Porcine) (Heparin -) 5,000 unit SQ BID [facility] Last Admin: 06/14/18 22:01 Dose: 5,000 unit Insulin Aspart (Novolog Vial Sliding Scale -) 1 vial SQ [facility]; Protocol Last Admin: 06/15/18 06:10 Dose: Not Given Labetalol HCl (Normodyne Injection -) 10 mg IVPUSH Q6H PRN PRN Reason: HYPERTENSION Last Admin: 06/12/18 18:20 Dose: 10 mg Levetiracetam (Keppra Injection -) 500 mg IVPB BID [facility] Last Admin: 06/14/18 22:01 Dose: 500 mg Rosuvastatin Calcium (Crestor -) 40 mg PO HS [facility] Last Admin: 06/14/18 22:01 Dose: 40 mg Valsartan (Diovan -) 160 mg PO DAILY [facility] Last Admin: 06/14/18 09:39 Dose: 160 mg - Objective Vital Signs: Vital Signs Temperature 97.9 F 06/15/18 07:35 Pulse Rate 101 H 06/15/18 07:35 Respiratory Rate 18 06/15/18 07:35 Blood Pressure 151/92 06/15/18 07:35 O2 Sat by Pulse Oximetry (%) 95 06/14/18 21:00 Constitutional: Yes: No Distress, Calm Cardiovascular: Yes: Regular Rate and Rhythm Respiratory: Yes: Regular, CTA Bilaterally Gastrointestinal: Yes: Normal Bowel Sounds, Soft Musculoskeletal: Yes: WNL Extremities: Yes: Other Neurological: Yes: Alert, Other (hemiparesis and aphasia have nearly resolved) Labs: CBC, BMP 06/15/18 06:30 06/15/18 06:30 INR, PTT INR 1.05 (0.82-1.09) 07/09/18 13:40 Assessment/Plan Problem List - Problems (1) Altered mental state Code(s): R41.82 - ALTERED MENTAL STATUS, UNSPECIFIED Qualifiers: Altered mental status type: transient alteration of awareness Qualified Code(s): R40.4 - Transient alteration of awareness (2) CVA (cerebral vascular accident) Code(s): I63.9 - CEREBRAL INFARCTION, UNSPECIFIED Qualifiers: CVA mechanism: embolism Laterality of affected vessel: left (3) Fever Code(s): R50.9 - FEVER, UNSPECIFIED Qualifiers: Fever type: unspecified Qualified Code(s): R50.9 - Fever, unspecified (4) HTN (hypertension), malignant Code(s): I10 - ESSENTIAL (PRIMARY) HYPERTENSION (5) Seizure as late effect of cerebrovascular accident (CVA) Code(s): I69.398 - OTHER SEQUELAE OF CEREBRAL INFARCTION; R56.9 - UNSPECIFIED CONVULSIONS (6) Hyperlipidemia Code(s): E78.5 - HYPERLIPIDEMIA, UNSPECIFIED Qualifiers: Hyperlipidemia type: pure hypercholesterolemia Qualified Code(s): E78.00 - Pure hypercholesterolemia, unspecified; E78.0 - Pure hypercholesterolemia (7) Microalbuminuria Code(s): R80.9 - PROTEINURIA, UNSPECIFIED Assessment/Plan 1. Acute Left MCA stroke 2. Seizure Episode 3. Bilateral Carotid Stenosis 4. HTN urgency 5. Microalbuminuria continue to monitor patient improving rest as per the team
[2018-06-15] MEDS: ASPIRIN COATED 81 MG TABLET.EC PO SCH (09:40)
[2018-06-15] MEDS: VALSARTAN 160 MG TABLET (UD) PO SCH (09:40)
[2018-06-15] MEDS: CLOPIDOGREL BISULFATE 75 MG TABLET (FP) PO SCH (09:40)
[2018-06-15] MEDS: levETIRAcetam 500 MG/5 ML INJECTION VIAL IVPB SCH (09:41)
[2018-06-15] MEDS: HEPARIN NA (PORCINE) 5,000 UNITS/ML 1ML VIAL SQ SCH (09:41)
--- NOTE | 2018-06-15 10:28 | PN ---
Progress Note, Physician Chief Complaint: Events noted Not in distress History of Present Illness: Patient was seen and examined. Awake and alert. Chart was reviewed Denies chest pain, SOB or palpitations Stood and walked slowly with assistance - Current Medication List Current Medications: Active Medications Acetaminophen (Tylenol -) 650 mg PO Q6H PRN PRN Reason: FEVER Last Admin: 06/14/18 22:01 Dose: 650 mg Aspirin (Ecotrin -) 81 mg PO DAILY [facility] Last Admin: 06/15/18 09:40 Dose: 81 mg Clopidogrel Bisulfate (Plavix -) 75 mg PO DAILY [facility] Last Admin: 06/15/18 09:40 Dose: 75 mg Heparin Sodium (Porcine) (Heparin -) 5,000 unit SQ BID [facility] Last Admin: 06/15/18 09:41 Dose: 5,000 unit Insulin Aspart (Novolog Vial Sliding Scale -) 1 vial SQ ACHS [facility]; Protocol Last Admin: 06/15/18 06:10 Dose: Not Given Labetalol HCl (Normodyne Injection -) 10 mg IVPUSH Q6H PRN PRN Reason: HYPERTENSION Last Admin: 06/12/18 18:20 Dose: 10 mg Levetiracetam (Keppra Injection -) 500 mg IVPB BID [facility] Last Admin: 06/15/18 09:41 Dose: 500 mg Rosuvastatin Calcium (Crestor -) 40 mg PO HS [facility] Last Admin: 06/14/18 22:01 Dose: 40 mg Valsartan (Diovan -) 160 mg PO DAILY [facility] Last Admin: 06/15/18 09:40 Dose: 160 mg - Objective Vital Signs: Vital Signs Temperature 97.9 F 06/15/18 07:35 Pulse Rate 101 H 06/15/18 07:35 Respiratory Rate 18 06/15/18 07:35 Blood Pressure 151/92 06/15/18 07:35 O2 Sat by Pulse Oximetry (%) 95 06/14/18 21:00 Eyes: Yes: PERRL HENT: Yes: Atraumatic Neck: Yes: Supple Cardiovascular: Yes: Regular Rate and Rhythm, Tachycardia, S1, S2 Respiratory: Yes: CTA Bilaterally Gastrointestinal: Yes: Normal Bowel Sounds, Soft. No: Tenderness Edema: No Additional Findings/Remarks: - Review of Systems Constitutional: denies: Chills. denies: Fever Cardiovascular: denies: Chest Pain, Palpitations, Shortness of Breath Respiratory: denies: Cough, Hemoptysis, Orthopnea, PND, SOB, SOB on Exertion Gastrointestinal: denies: Bloating, Constipation. denies: Abdominal Pain, Diarrhea, Melena, Nausea, Rectal Bleeding, Vomiting Genitourinary: denies: Hematuria Musculoskeletal: denies: Joint Pain Neurological: denies: Dizziness, Headache, Seizure, Syncope, Weakness Labs: CBC, BMP 06/15/18 06:30 06/15/18 06:30 Problem List - Problems (1) CVA (cerebral vascular accident) Code(s): I63.9 - CEREBRAL INFARCTION, UNSPECIFIED Qualifiers: CVA mechanism: embolism Laterality of affected vessel: left (2) HTN (hypertension), malignant Code(s): I10 - ESSENTIAL (PRIMARY) HYPERTENSION (3) Hyperlipidemia Code(s): E78.5 - HYPERLIPIDEMIA, UNSPECIFIED Qualifiers: Hyperlipidemia type: pure hypercholesterolemia Qualified Code(s): E78.00 - Pure hypercholesterolemia, unspecified; E78.0 - Pure hypercholesterolemia (4) Microalbuminuria Code(s): R80.9 - PROTEINURIA, UNSPECIFIED (5) Seizure as late effect of cerebrovascular accident (CVA) Code(s): I69.398 - OTHER SEQUELAE OF CEREBRAL INFARCTION; R56.9 - UNSPECIFIED CONVULSIONS Assessment/Plan 1. Acute Left MCA stroke 2. Seizure 3. Bilateral Carotid Stenosis 4. HTN 5. Microalbuminuria PLAN: 1. Continue telemetry monitoring to rule out PAF and would benefit from long- term arrhythmia monitoring if no atrial arrhythmias detected in the hospital 2. ASA 81 qd, Plavix 75 qd per neurology and continue Crestor 40 qd and Diovan 160 qd 3. PT and eventually will need SNF/rehab 4. Further cardiac evaluation as outpatient 5. DVT prophylaxis Further plans are to follow Hiram Eason MD
[2018-06-15 14:37] VITALS: BP 118/74; PULSE 111; TEMP 98.6
--- NOTE | 2018-06-15 19:42 | DS ---
Physical Examination Vital Signs: Vital Signs Temperature 98.6 F 06/15/18 14:00 Pulse Rate 111 H 06/15/18 14:00 Respiratory Rate 18 06/15/18 14:00 Blood Pressure 118/74 06/15/18 14:00 O2 Sat by Pulse Oximetry (%) 95 06/15/18 10:00 HENT: Yes: Atraumatic Cardiovascular: Yes: Regular Rate and Rhythm Respiratory: Yes: CTA Bilaterally Gastrointestinal: Yes: Normal Bowel Sounds Extremities: Yes: WNL Edema: No Neurological: Yes: Alert, Oriented, Weakness (R upper and R lower extremities) Labs: CBC, BMP 06/15/18 06:30 06/15/18 06:30 Discharge Summary Reason For Visit: FEVER,AMS - Instructions Referrals: Ajay Garcia MD [Staff Physician] - Home Larry MD [Staff Physician] - Disposition: HOME - Home Medications Comprehensive Discharge Medication List: Ambulatory Orders Amlodipine Besylate [Norvasc -] 10 mg PO DAILY tablet 06/13/18 Aspirin Coated [Ecotrin -] 81 mg PO DAILY tablet.ec 06/13/18 Clopidogrel Bisulfate [Plavix -] 75 mg PO DAILY tablet 06/13/18 Heparin - 5,000 unit SQ BID vial 06/13/18 Insulin Sliding Scale [Novolog Vial Sliding Scale -] 1 vial SQ ACHS units 06/13 Rosuvastatin [Crestor -] 40 mg PO HS tablet 06/13/18 Valsartan [Diovan] 80 mg PO DAILY tablet 06/13/18 dc snf
== END 2018-06-15 15:23 | disposition home or self-care (01) | DRG 65 ==
LOC: JER 12:27 → JERBED 15:54 → JICU 23:55 → J4S 06-13 14:56
PROVIDERS: ADMIT Internal Medicine; ATTEND Internal Medicine
DX: I63.233 Cerebral infarction due to unspecified occlusion or stenosis of bilateral carotid arteries (principal); M62.82 Rhabdomyolysis; J98.11 Atelectasis; I69.351 Hemiplegia and hemiparesis following cerebral infarction affecting right dominant side; R56.9 Unspecified convulsions; R50.9 Fever, unspecified; M54.5 Low back pain; R29.725 NIHSS score 25; I69.398 Other sequelae of cerebral infarction; I69.320 Aphasia following cerebral infarction; I16.0 Hypertensive urgency; R80.9 Proteinuria, unspecified
CPT/HCPCS: 36415; 70450-TC; 70496-TC; 70498-TC; 70551-TC; 71045-TC-FY; 73523-TC-FY; 80048; 80053; 81003; 81015; 82550; 82553; 82962; 83605; 83721; 83735; 84100; 84443; 84484; 85025; 85027; 85610; 86850; 86900; 86901; 87040; 87086; 90670; 93005; 93010; 93306-TC; 93880-TC; 97161-GP; 99285-25; J0131; J1644; J7030